=== PATIENT | female | born 1950 | race Caucasian/White ===

== ENCOUNTER 2024-06-27 14:29 | Outpatient (AMB) | payer BC, SELFPAY ==
--- NOTE | 2024-06-27 14:49 | HO.NEPHOV ---
Vital Signs 06/27/24 14:51 Height 5 ft 2.5 in Weight 125 lb 6 oz BMI 22.6 BP 138/70 Blood Pressure Location Lt brachial Position Sitting Pulse 77 Pulse Source Pulse Oximeter Pulse Oximetry (%) 97 Oxygen Delivery Method Room Air Intake Visit Reasons: ENP: CKD stage 3/ GFR 33/ Conf Web Marketing Assistant Required: No Accompanied by: Spouse Allergies No Known Allergies Allergy (Verified 06/27/24 14:51) HPI Comments Details: I had the privilege of seeing Mona for acute kidney injury on a backdrop of CKD stage 3. She is 74 years of age and was accompanied by her . She has hypertension for long time and had been taking lisinopril as well as amlodipine. She gets blood pressure checked at home and has been at goal. She denies any nausea, vomiting, diarrhea, pedal edema, paroxysmal nocturnal dyspnea,, orthopnea, hematuria. She has history of renal calculus. She is very active and exercises every day. She eats a low-sodium diet, counts calories and eats a lot of fruits and vegetables. She had taken proton pump inhibitor in the past. She maintains good hydration. Her serum creatinine has gone to 1.6 recently. She denies any chest pain, palpitation, syncope, history of coronary artery disease, congestive heart failure, CVA, carotid stenosis, peripheral arterial disease. She denies sinusitis, epistaxis, sore throat, hematuria, weight loss, night sweats, history of malignancy. She has arthritis but denies taking nonsteroidal anti-inflammatories on a regular basis. She is concerned that her serum creatinine has gone up. [facility] Medical History (Updated 06/29/24 @ 13:53 by Vidal Sanford MD) Enlarged thyroid Osteoporosis Glaucoma Nephrolithiasis Arthritis Chronic kidney disease, stage 3 Hyperlipidemia Hypertension Surgical History (Updated 06/27/24 @ 14:50 by Lissette Pan MA) H/O hernia repair Social History (Updated 06/27/24 @ 14:49 by Lissette Pan MA) Alcohol intake: current Patient Tobacco Use Status: Former Tobacco user Review of Systems Const All systems reviewed & are unremarkable except as noted in HPI and below Physical Exam Vital Signs: Last Vital Signs Pulse 77 06/27/24 14:51 BP 138/70 06/27/24 14:51 Pulse Ox 97 06/27/24 14:51 Oxygen Delivery Method Room Air 06/27/24 14:51 BMI result Body Mass Index 22.6 Const General: comfortable and no acute distress Orientation/consciousness: patient oriented x3 HEENT Head: Yes normocephalic Mouth: Normal oral and palatal mucosa present Eyes EOM: EOMs intact bilaterally Neck Neck: Yes supple Resp Auscultation: clear to auscultation bilaterally Cardio Jugular venous distension: no JVD Rate: regular rate GI Palpation (GI): Soft to palpation Auscultation: normal bowel sounds General: Yes no CVA tenderness Back/Spine/Pelvis Back: no CVA tenderness Skin General skin exam: no rashes or lesions noted Neuro General: patient oriented x3 and moves all extremities Extrem General: Yes no pedal edema Results Reviewed Nephrology Results: No Data to Display Assessment & Plan Assessment & Plan (1) CKD stage 3a, GFR 45-59 ml/min: Code(s): N18.31 - Chronic kidney disease, stage 3a Category: Medical (2) Hypertension: Code(s): I10 - Essential (primary) hypertension Category: Medical Qualifiers: Hypertension type: primary hypertension Qualified Code(s): I10 - Essential (primary) hypertension Plan Mona has had chronic kidney disease stage 3 at baseline most likely due to hypertension, vascular disease along with he related loss of renal functions. She has been on FALGUNI-inhibitor for a long time. We need to rule out renovascular disease. I ordered renal ultrasound as well as Doppler of her renal arteries along with repeat blood work and urine studies including creatinine clearance. She was encouraged to maintain good hydration and avoid nonsteroidal anti-inflammatories. Her blood pressure needs to maintained at goal. Further management is pending evolving data. All these have been explained in detail. Answered her and her 's questions. Follow-up appointment given Orders: Orders US renal BI 06/27/24 I10 - Essential (primary) hypertension, N18.31 - Chronic kidney disease, stage 3a Creatinine 06/27/24 I10 - Essential (primary) hypertension, N18.31 - Chronic kidney disease, stage 3a Blood Urea Nitrogen 06/27/24 I10 - Essential (primary) hypertension, N18.31 - Chronic kidney disease, stage 3a Electrolytes 06/27/24 I10 - Essential (primary) hypertension, N18.31 - Chronic kidney disease, stage 3a Phosphorus 02/18/25 I10 - Essential (primary) hypertension, N18.31 - Chronic kidney disease, stage 3a Creatinine Clearance Urine 24U 06/27/24 I10 - Essential (primary) hypertension, N18.31 - Chronic kidney disease, stage 3a US renal doppler 06/27/24 I10 - Essential (primary) hypertension, N18.31 - Chronic kidney disease, stage 3a Immunofixation Pnl, Serum 06/27/24 I10 - Essential (primary) hypertension, N18.31 - Chronic kidney disease, stage 3a Immunofixation, Random Urine 06/27/24 I10 - Essential (primary) hypertension, N18.31 - Chronic kidney disease, stage 3a Parathyroid Hormone Intact 06/27/24 I10 - Essential (primary) hypertension, N18.31 - Chronic kidney disease, stage 3a Vitamin D 25-OH Total 06/27/24 I10 - Essential (primary) hypertension, N18.31 - Chronic kidney disease, stage 3a Calcium 06/27/24 I10 - Essential (primary) hypertension, N18.31 - Chronic kidney disease, stage 3a UA and rflx microscopic 06/27/24 I10 - Essential (primary) hypertension, N18.31 - Chronic kidney disease, stage 3a Protein Creatinine Ratio, Ur 06/27/24 I10 - Essential (primary) hypertension, N18.31 - Chronic kidney disease, stage 3a Coding Level of Care Code New Pt Level 4 (13130) Diagnoses CKD stage 3a, GFR 45-59 ml/min N18.31 Primary hypertension I10 Hypertension type: primary hypertension
[2024-06-27 14:51] VITALS: BP 138/70; PULSE 77; O2SAT 97; BMI 22.6
--- OUTSIDE RECORDS SUMMARY | 2024-06-27 15:29 | XMS_ITS | Encounter Summary ---
Author Organization [facility] Address [address] [place] [address] Care Team Providers Care Vice President For Instruction Name Role Phone Jerald Randhawa DO Primary Care Provider [phone] Reason for Visit * Imaging (Routine) - Closed Specialty Diagnoses / Procedures Referred By Beny chaney Referred To Contact Diagnoses Bilateral leg pain Asymptomatic varicose veins of both lower extremities Procedures Vascular US duplex lower extremity venous insufficiency bilateral Susana Rossi PA [address] [place] [address] Phone: tel: fax: [facility] Referral ID Status Reason Start Date Expiration Date Visits Re quested Visits Authorized [id number] Closed 02/25/2024 02/24/2025 1 1 Encounter Details Date Type Department Care Team (Latest Contact Info) Description 06/07/2024 1:15 PM EST Ancillary Procedure [facility] [address] [facility] [address] [place] [phone] Bilateral leg pain; Asymptomatic varicose veins of both lower extremities Social History Tobacco Use Types Packs/Day Years Used Date Smoking Tobacco: Never Assessed Comments Unknown Sex and Gender Information Value Date Recorded Sex Assigned at Not on file Legal Sex Female 6:42 PM EST Gender Identity Not on file Sexual Orientation Not on file documented as of this encounter Plan of Treatment Upcoming Encounters Date Type Department Care Team (Late st Contact Info) Description 07/06/2024 1:00 PM EST Office Visit [facility] Hematology Oncology [address] [place] [phone] Carlos Templeton MD [address] [place] [address] 08/04/2024 3:00 PM EDT Office Visit Vascular Surgery - Hydes [address] [place] [phone] Susana Rossi PA [address] [place] [address] documented as of this encounter Procedures Procedure Name Priority Date/Time Associated Diagnosis Comments VAS US DUPLEX LOWER EXT VENOUS INSUFFICIENCY BILATERAL Routine 06/07/2024 2:03 PM EST Bilateral leg pain Asymptomatic varicose veins of both lower extremities documented in this encounter Results * Vascular US duplex lower extremity venous insufficiency bilateral (06/07/2024 2:03 PM EST) Left GSK jason 0.25 cm CV VAS LAB Left GSDC jason 0.15 cm CV VAS LAB Left GSMT jason 0.24 cm CV VAS LAB Left GSPC jason 0.18 cm CV VAS LAB Left GSPT jason 0.21 cm CV VAS LAB Left SFJ Diameter 0.63 cm CV VAS LAB Left SSMC jason 0.13 cm CV VAS LAB Left SSPC jason 0.13 cm CV VAS LAB Right GSK jason 0.19 cm CV VAS LAB Right GSDC jason 0.23 cm CV VAS LAB Right GSMT jason 0.18 cm CV VAS LAB Right GSPC jason 0.19 cm CV VAS LAB Right GSPT jason 0.21 cm CV VAS LAB Right SFJ Diameter 0.62 cm CV VAS LAB Right SSMC jason 0.15 cm CV VAS LAB Right SSPC jason 0.28 cm CV VAS LAB Left GSK reflux 400 ms CV VAS LAB Left GSPC reflux 4,439 ms CV VAS LAB Anatomical Region Laterality Modality Vascular, Abdomen Ultrasound Narrative 06/15/2024 5:15 PM EST RIGHT: 1. ??There is no evidence of a DVT in the right lower extremity. 2. ??There is no clinically significant reflux noted in the right lower extremity venous system LEFT: 1. ??There is no evidence of a DVT in the left lower extremity. 2. The SFJ, femoral vein, popliteal vein and SSV are competent 3. ??The GSV has clinically significant reflux as described below. Right Lower Venous No evidence of deep vein thrombosis in the common femoral, deep femoral, proximal femoral, mid femoral, distal femoral, popliteal, greater saphenous, small saphenous, posterior tibial and peroneal veins of the right leg. The vessels showed compressibility. Interrogation showed phasic and spontaneous Doppler signals. Right Venous Insufficiency Duplex The exam was performed with the patient in reverse Trendelenburg. Left Lower Venous No evidence of deep vein thrombosis in the common femoral, deep femoral, proximal femoral, mid femoral, distal femoral, popliteal, greater saphenous, small saphenous, posterior tibial and peroneal veins of the left leg. The vessels showed compressibility. Interrogation showed phasic and spontaneous Doppler signals. Left Venous Insufficiency Duplex The exam was performed with the patient in reverse trendelenburg. Left greater saphenous refkuxing branch: left knee branch= 4120ms Commercial Loan Officer Details A ny scale, color and doppler analysis ultrasound was performed. During the study longitudinal and transverse views were obtained. Pulsed wave doppler was performed. us Susana ARCINIEGA CV VASCULAR PROCEDURES Final R esult documented in this encounter Visit Diagnoses Diagnosis Bilateral leg pain Pain in soft tissues of limb Asymptomatic varicose veins of both lower extremities documented in this encounter Care Teams Vice President For Instruction Relationship Specialty Start Date End Date Jerald Randhawa DO [address] [place] [phone] PCP - General 12/08/23 documented as of this encounter
--- OUTSIDE RECORDS SUMMARY | 2024-06-27 15:29 | XMS_ITS | Patient Health Record ---
Author Organization [facility] Address [address] [place] [address] Care Team Providers Care Armor Officer Name Role Phone MT METZGER Primary Care Provider SABRINA BARCLAY Unavailable [phone] MT METZGER Unavailable [phone] Allergies No Known Allergies Reason For Referral No Information Medications Medication SIG (Take, Route, Frequency, Duration) Notes Start Date End Date Status amLODIPine Besylate 10 MG TAKE 1 TABLET BY MOUTH EVERY DAY for 90 Active Centrum Silver 50+Women - as directed Orally Not-Taking Atorvastatin Calcium 20 MG TAKE 1 TABLET BY MOUTH EVERY DAY ORALLY EVERY EVENING 90 DAYS for 90 Active Tylenol PM Extra Strength 500-25 MG 1 tablet at bedtime as needed Orally Once a day for 30 day(s) PRN Not-Taking Omeprazole 40 MG TAKE 1 CAPSULE BY MO RIH EVERY DAY FOR 30 DAYS for 90 Not-Taking Gabapentin 300 MG 1 capsule Orally at bedtime for 30 day(s) 11/13/2021 Not-Taking CoQ-10 30 MG as directed Orally Active Lisinopril 20 MG TAKE 1 TABLET BY ORIN TH EVERY DAY for 90 Active Calcium + D3 600-800 MG-UNIT 1 tablet with a meal Orally Once a day for 30 day(s) Not-Taking Aleve 220 MG 1 tablet with food o r milk as needed Orally every 12 hrs PRN Active amLODIPine Besylate 5 MG 1 tablet Orally Once a day for 90 day(s) Not-Taking Immunizations Vaccine Route Administration Date Status Comme nts Pneumococcal conjugate PCV 13 Unknown 12/16/2017 Administered Pneumococcal polysaccharide PPV23 Unknown 05/24/2018 Administered SHINGRIX Unknown 05/26/2018 Administered first dose 12/07/2017 Tdap Unknown 08/08/2014 Administered Social History Tobacco Use: Social History Observation Description Date Details (start date - stop date) Former Smoker NA - NA Tobacco Use/Smoking Question Answer Notes Are you a former smoker How long has it been since you last smoked? > 10 years Additional Findings: Tobacco Non-User Current no n-smoker Alcohol Screen (Audit-C) Question Answer Notes Did you have a drink contain ing alcohol in the past year? Yes How often did you have a dri nk containing alcohol in the past year? 2 to 4 times a month (2 points) How many drinks did you have on a typical day when you were drinking in the past year? 1 or 2 drinks (0 point) How often did you have 6 or more drinks on one occasion in the past year? Never (0 point) Points 2 Interpretation Negative Section Notes: born in [place], moved to at age 9. Attended [employer] Wanted to study computer but too poor to go to college. 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 Kayla's dad owned a liquor store in [place]. born in [place], [place] at age 9. Attended [employer] Wanted to study computer but too poor to go to college. 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 Kayla's dad owned a liquor store in [place]. born in [place], moved [place] at age 9. Attended [employer] Wanted to study computer but too poor to go to college. 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 Kayla's dad owned a liquor store in [place] [employer]. born in [place], moved [place] at age 9. Attended [employer] Wanted to study computer but too poor to go to college. 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 Kayla's dad owned a liquor store in [place]. born in [place], moved [place] at age 9. Attended [employer] Wanted to study computer but too poor to go to college. 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 Kayla's dad owned a liquor store in [place] [place]. born in [place], moved to [place] at age 9. Attended [employer] Wanted to study computer but too poor to go to college. 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 Kayla's dad owned a liquor store in [place]. born in [place], moved to [place] at age 9. Attended [employer] Wanted to study computer but too poor to go to college. 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 Kayla's dad owned a liquor store in [place]. born in [place], moved to [place] at age 9. Attended [employer] Wanted to study computer but too poor to go to college. 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 Kayla's dad owned a liquor store in [place]. born in [place], moved [place] at age 9. Attended [employer] Wanted to study computer but too poor to go to college. 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 Kayla's dad owned a liquor store in [place]. born in [place], moved to [place] at age 9. Attended [employer] Wanted to study computer but too poor to go to college. 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 Kayla's dad owned a liquor store in [place]. Problems Problem Type SNOMED Code ICD Code Onset Dates Problem Status W/U Status Risk Notes Problem 31099728 Other chronic pain (G89.29) Active confirmed Problem Hypertension (47574241) Hypertension (I10) Active confirmed bp at goal. no change in med. urged cont low impact aerobic exercise Problem 524334408 Thrombocytopenia (D69.6) Active confirmed has been eval by Dr Rojas. may be normal variant. no pathologic. Problem Osteoporosis (11280381) Osteoporosis (M81.0) Active confirmed DEXa 2017 left hip -2.2 Took fosamax for about 3 mo and stopped to due to joint pains. DEXA 2019 left hip -2.3 and left fem neck -3.0 Declined prolia. Does not want discuss medication today. Will cont to take her vitamin D3 supplement. Problem 874613263 Gastroesophageal reflux disease without esophagitis (K21.9) Active confirmed sx resolved with omeprazole 40mg qd. will cont med until rx completed. avoid food triggers Problem Vitamin D deficiency (02742170) Vitamin D deficiency (E55.9) Active confirmed hx of vit D deficiency and osteoporosis. will check lab cont otc supplement D3 Problem Insomnia (916933056) Insomnia (G47.00) Active confirmed Problem 61104800 Varicose veins of both legs with edema (I83.893) Active confirmed edema at end of the day, legs cramp at night. [place] Dr Yee for eval, advised to get compression hose 20-30mmHg but was unable to tolerate. showed web sites for compression garments used by athletes and compression hose with no feet She will try these. Problem 492341892 Primary osteoarthritis of both knees (M17.0) Active confirmed Problem 02240242 Restless legs (G25.81) Active confirmed Problem 1693013 Former smoker (Z87.891) Active confirmed smoked 20-30 years less than a pack per day. FEV1 79% mild obstruction. flu vaccine in Feb at pharmacy. has had covid vaccine Problem Arthritis (4426149) Arthritis (M19.90) Active confirmed multiple joints. after much discussion admits she was eval at [facility] Doesn't want cortisone for her knees. discussed limitation of daily actiity and persistence of increasing pain in left knee as indicators that she should go for reeval. She is resisting knee replacement. [facility] notes requested. Problem Renal insufficiency (126347388) Renal insufficiency (N28.9) Active confirmed Problem Benign neoplasm of colon (79930723) Benign colonic polyp (K63.5) Active confirmed colonoscopy 01/11/2015 DR Grant 5 years recall. no notes for repeat colonoscopy found in transferred records. Problem 59938333 Elevated fasting glucose (R73.01) Active confirmed Problem Thrombocytosis (1371627) Thrombocytosis (D47.3) Active confirmed Problem Hypercholesterolemi a (00055116) Hypercholesterol emia (E78.00) Active confirmed takes statin, follows lower fat diet. reviewed labs with patient. no change in plan Problem 484341052 Thickened endometrium (R93.89) Active confirmed Problem 093214929 Hx of colonic polyps (Z86.010) Active confirmed Problem Chronic kidney disease stage 3 (disorder) (950099414) Chronic kidney disease, stage 3 unspecified (N18.30) Active confirmed Problem 699723810 Stage 3a chronic kidney disease (N18.31) Active confirmed Problem 89019808 Degenerative disc disease, lumbar (M51.36) Active confirmed xray 2016 showed diffuse disc degeneration and lower lumbar facet degeneration. Per transferred records did not follow through on MRI ordered. Has hx of sciatica. 09/02/20 cont to have daily pain althoug able to perform all ADL's. Exercise limited. due to pain.. will image. May benefit from PT. If sx cont will refer to [facility] to consider injections. 10/11/20 reviewed xray with patient advised eval for cortisone injections forher pain. referral made 01/16/21 has decided not to have further injections. states she can manage her pain by doing less activity. 2.24.22 daily pain and manages it by lower impact activity and resting between activities. discussed pain behind knee that goes down to foot radicular, from her back is not ready to go to [facility] for further interventions . Plan Of Treatment Pending Test Test Name Order Date DEXA Hip and Spine 01/16/2021 MAMMOGRAM, SCREENING 01/16/2021 MAMMOGRAM, SCREENING 10/23/2022 Bone Density 10/23/2022 CBC WITH AUTO DIFF 04/27/2022 CBC WITH AUTO DIFF 03/26/2022 COMPREHENSIVE METABOLIC PANEL 03/26/2022 LIPID PROFILE 03/26/2022 US TRANS VAGINAL 11/18/2022 Future Test Test Name Order Date VITAMIN D, 25-HYDROXY 09/02/2020 BASIC METABOLIC PANEL (BMP) 12/11/2020 LIPID PROFILE 12/11/2020 Insurance Providers Payer Name Payer Address Payer Phone Subscriber Number Group Number Insured Name Patient Relationship to Insured Coverage Start Date Coverage End Date Blue [employer] and Blue [facility] [address] [place] [address] [phone] [id number] Mona Moss Self - patient is the insured Medications Administered Medication Instructions Date of Administration Dosage Notes Tdap 08/08/2014 Medical (General) History Medical History History ICD Code duodenal ulcer 01/08/2015 Hpylori on EGD T reated with antibiotics and PPI nephrolethiasis before age 9 and again in 1970's Gastroesophageal reflux disease without esophagitis K21.9 Surgical History Surgery Date(Month/Year) cateract excision Hospitalization History Reason Date(Month/Year) [facility], admitted for CP Neg EKG and troponins. Responded to gastric cocktail. Rx PPI 01/2020 syncope attributed to vasovagal episode.
--- OUTSIDE RECORDS SUMMARY | 2024-06-27 15:30 | XMS_ITS | Clinical Summary ---
Author Organization [address] [place] [address] Address [address] [place] [address] Phone Care Team Providers Care Spray Blender Name Role Phone Jerald Randhawa DO Primary Care Provider [phone] Allergies No known active allergies Medications amLODIPine (NORVASC) 10 mg tablet Take 1 Tablet by mouth daily. Active aspirin ([place]alore) 81 mg capsule Take 81 mg by mouth daily. Active atorvastatin (LIPITOR) 20 mg tablet Take 1 Tablet by mouth daily. Active lisinopriL (PRINIVIL,ZESTRI L) 20 mg tablet Take 1 Tablet by mouth daily. Active Active Problems Problem Noted Date Diagnosed Date Arthritis 03/03/2024 Elevated HDL 03/03/2024 GERD without esophagitis 03/03/2024 HTN (hypertension) 03/03/2024 Stage 3a chronic kidney disease 03/03/2024 Varicose veins of leg with edema 03/03/2024 Encounters Date Type Department Care Team Description 06/07/2024 1:15 PM EST Ancillary Procedure [facility] Cardiology [facility] [address] [phone] Bilateral leg pain; Asymptomatic varicose veins of both lower extremities 04/18/2024 2:45 PM EST Ancillary Procedure [facility] Cardiology [facility] [address] [phone] H/O intermittent claudication; Rest pain of both lower extremities due to atherosclerosis ([facility]/HCC) 04/13/2024 Telephone Vascular Surgery - [address] [phone] Susana Rossi PA Appointment (No DX for Arterial/MARY) from Last 3 Months Social History Tobacco Use Types Packs/Day Years Used Date Smoking Tobacco: Never Assessed Comments Unknown Sex and Gender Information Value Date Recorded Sex Assigned at Not on file Legal Sex Female 6:42 PM EST Gender Identity Not on file Sexual Orientation Not on file Last Filed Vital Signs Vital Sign Reading Time Taken Comments Blood Pressure 151/75 02/22/2024 2:57 PM EDT Sit ting R Arm Pulse 81 02/22/2024 2:57 PM EDT Temperature - - Respiratory Rate - - Oxygen Saturation - - Inhaled Oxygen Concentration - - Weight 57.6 kg (127 lb) 02/22/2024 2:57 PM EDT Height 152.4 cm (5') 02/22/2024 2:57 PM EDT Body Mass Index 24.8 02/22/2024 2:57 PM EDT Plan of Treatment Upcoming Encounters Date Type Department Care Team (Late st Contact Info) Description 07/06/2024 1:00 PM EST Office Visit [facility] Hematology Oncology [address] [place] [phone] Carlos Templeton MD [address] [place] [address] 08/04/2024 3:00 PM EDT Office Visit Vascular Surgery - [place] [address] [place] [phone] Susana Rossi PA [address] [place] [address] Health Maintenance Due Date Last Done Comments COVID-19 Vaccine (#1) 1955 Cholesterol Screening (Lipid Panel) 04/11/2022 Depression Screening 04/11/2022 Falls Risk Assessment 04/11/2022 Hepatitis C Screening 04/11/2022 Medicare Annual Wellness Visit 04/11/2022 Osteoporosis Screening (Bone Density Screening) 04/11/2022 Social Influencers of Health Screening 04/11/2022 RSV Immunization Patients 60 + Years Old (1 - 1-dose 75+ series) 2023 Influenza Vaccine (#1) 2024 0, 06/06/2019, 03/24/2017 DTaP,Tdap,and Td Vaccines (2 - Td or Tdap) 08/08/2024 08/08/2014 Hypertension/CHF/CAD Annual BMP Blood Test 06/05/2025 06/05/2024, 06/01/2024 Pneumococcal Vaccine: 50+ Years Completed 05/24/2018, 12/16/2016 Zoster Vaccines Completed 05/26/2018, 12/07/2017 HIB Vaccines Aged Out No longer eligi ble based on patient's age to complete this topic HPV Vaccines Aged Out No longer eligi ble based on patient's age to complete this topic Hepatitis A Vaccines Aged Out No long er eligible based on patient's age to complete this topic Hepatitis B Vaccines Aged Out No long er eligible based on patient's age to complete this topic IPV Vaccines Aged Out No longer eligi ble based on patient's age to complete this topic MMR Vaccines Aged Out No longer eligi ble based on patient's age to complete this topic Meningococcal ACWY Vaccine Aged Out N o longer eligible based on patient's age to complete this topic Meningococcal B Vacine Aged Out No lo nger eligible based on patient's age to complete this topic RSV Immunization Patients Under 20 months Aged Out No longer eligible b ased on patient's age to complete this topic Varicella Vaccines Aged Out No longer eligible based on patient's age to complete this topic Procedures Procedure Name Priority Date/Time Associated Diagnosis Comments VAS US DUPLEX LOWER EXT VENOUS INSUFFICIENCY BILATERAL Routine 06/07/2024 2:03 PM EST Bilateral leg pain Asymptomatic varicose veins of both lower extremities BASIC METABOLIC PANEL Routine 06/05/2024 1:06 PM EST HTN (hypertension) CKD (chronic kidney disease) CBC WITH AUTO DIFFERENTIAL Routine 06/01/2024 2:30 PM EST HTN (hypertension) Thrombocytopenia (CMS/HCC) CBC AND DIFFERENTIAL Routine 06/01/2024 2:30 PM EST HTN (hypertension) Thrombocytopenia (CMS/HCC) BASIC METABOLIC PANEL Routine 06/01/2024 2:30 PM EST HTN (hypertension) Thrombocytopenia (CMS/HCC) VAS US DUPLEX LOWER EXT ARTERIES BILAT WITH MARY Routine 04/18/2024 3:58 PM EST H/O intermittent claudication Rest pain of both lower extremities due to atherosclerosis (CMS/HCC) from Last 3 Months Results * Vascular US duplex lower extremity [...] 0.23 cm CV VAS LAB Right GSMT ajson 0.18 cm CV VAS LAB Right GSPC [...] saphenous refkuxing branch: left knee branch= 4120ms In Flight Refueling Manager Details A ny scale, color and doppler analysis ultrasound was performed. During the study longitudinal and transverse views were obtained. Pulsed wave doppler was performed. us Susana ARCINIEGA CV VASCULAR PROCEDURES Final R esult * (ABNORMAL) Basic metabolic panel (06/05/2024 1:06 PM EST) Only the most recent of2 resultswithin the time period is included. Sodium 137 133 - 145 mmol/L LAB CHEMISTRY METHOD 06/05/2024 4:36 PM [facility] Potassium 4.3 3.5 - 5.5 mmol/L LAB CHEMISTRY METHOD 06/05/2024 4:36 PM [facility] Chloride 105 96 - 110 mmol/L LAB CHEMISTRY METHOD 06/05/2024 4:36 PM [facility] CO2 27 21 - 32 mmol/L LAB CHEMISTRY METHOD 06/05/2024 4:36 PM [facility] Anion Gap 5 3 - 11 LAB CHEMISTRY METHOD 06/05/2024 4:36 PM [facility] Glucose 110(H) 70 - 100 mg/dL LAB CHEMISTRY METHOD 06/05/2024 4:36 PM [facility] BUN 23 5 - 25 mg/dL LAB CHEMISTRY METHOD 06/05/2024 4:36 PM [facility] Creatinine 1.61(H) 0.50 - 1.10 mg/dL LAB CHEMISTRY METHOD 06/05/2024 4:36 PM [facility] eGFR 33(L) >=60 mL/min/1. 73m2 LAB CHEMISTRY METHOD 06/05/2024 4:36 PM EST [facility] Comment:Calculation based on the??Chronic Kidney Disease Epidemiology Collaboration (CKD-EPI) equation refit??without adjustment for race. BUN/Creatinine Ratio 14.3 LAB CHEMISTRY METHOD 06/05/2024 4:36 PM EST [facility] Calcium 9.5 8.5 - 10.5 mg/dL LAB CHEMISTRY METHOD 06/05/2024 4:36 PM EST [facility] Blood Venous blood specimen / Unknown Venipuncture / Unknown 06/05/2024 1:06 PM EST 06/05/2024 1:06 PM EST [facility] BLOOD ORDERABLES Final Resul t [facility] [address] [place] [address], * (ABNORMAL) CBC auto differential (06/01/2024 2:30 PM EST) WBC 10.7 4.8 - 10.8 K/mcL LAB HEMETOLOGY METHOD 06/01/2024 7:23 PM [facility] RBC 3.90 3.80 - 4.80 M/mcL LAB HEMETOLOGY METHOD 06/01/2024 7:23 PM [facility] Hemoglobin 11.9 11.5 - 16.0 g/dL LAB HEMETOLOGY METHOD 06/01/2024 7:23 PM [facility] Hematocrit 38.3 35.0 - 47.0 % LAB HEMETOLOGY METHOD 06/01/2024 7:23 PM [facility] MCV 98.2(H) 79.0 - 98.0 FL LAB HEMETOLOGY METHOD 06/01/2024 7:23 PM [facility] MCH 30.5 27.0 - 32.0 pcg LAB HEMETOLOGY METHOD 06/01/2024 7:23 PM [facility] MCHC 31.1(L) 32.0 - 37.0 g/dL LAB HEMETOLOGY METHOD 06/01/2024 7:23 PM [facility] RDW 14.0 11.0 - 15.0 % LAB HEMETOLOGY METHOD 06/01/2024 7:23 PM [facility] Platelets 464(H) 130 - 400 K/mcL LAB HEMETOLOGY METHOD 06/01/2024 7:23 PM [facility] MPV 10.1 7.0 - 11.0 FL LAB HEMETOLOGY METHOD 06/01/2024 7:23 PM [facility] NRBC 0.0 <1.0 % LAB HEMETOLOGY METHOD 06/01/2024 7:23 PM [facility] NRBC Absolute 0.00 <0.10 K/mcL LAB HEMETOLOGY METHOD 06/01/2024 7:23 PM [facility] Neutrophils Relative 56.3 % LAB HEMETOLOGY METHOD 06/01/2024 7:23 PM [facility] Lymphocytes Relative 31.5 % LAB HEMETOLOGY METHOD 06/01/2024 7:23 PM [facility] Monocytes Relative 8.5 % LAB HEMETOLOGY METHOD 06/01/2024 7:23 PM [facility] Eosinophils Relative 2.6 % LAB HEMETOLOGY METHOD 06/01/2024 7:23 PM [facility] Basophils Relative 0.9 % LAB HEMETOLOGY METHOD 06/01/2024 7:23 PM [facility] Immature Granulocytes Relative 0.2 % LAB HEMETOLOGY METHOD 06/01/2024 7:23 PM [facility] Neutrophils Absolute 6.01 1.50 - 7.00 K/mcL LAB HEMETOLOGY METHOD 06/01/2024 7:23 PM EST [facility] Lymphocytes Absolute 3.37 1.00 - 5.00 K/mcL LAB HEMETOLOGY METHOD 06/01/2024 7:23 PM EST [facility] Monocytes Absolute 0.91 0.20 - 1.00 K/mcL LAB HEMETOLOGY METHOD 06/01/2024 7:23 PM EST [facility] Eosinophils Absolute 0.28 0.00 - 0.50 K/mcL LAB HEMETOLOGY METHOD 06/01/2024 7:23 PM EST [facility] Basophils Absolute 0.10 0.00 - 0.20 K/mcL LAB HEMETOLOGY METHOD 06/01/2024 7:23 PM EST [facility] Immature Granulocytes Absolute 0.02 0.00 - 0.03 K/mcL LAB HEMETOLOGY METHOD 06/01/2024 7:23 PM EST [facility] Blood Venous blood specimen / Unknown Venipuncture / Unknown 06/01/2024 2:30 PM EST 06/01/2024 2:30 PM EST [facility] BLOOD ORDERABLES Final Resul t [facility] [address] [place] [address], * Vascular US duplex lower extremity arteries bilateral with MARY (04/18/2024 3:58 PM EST) Left Dist External Iliac PSV 137 cm/s CV VAS LAB Left Prox External Iliac PSV 123 cm/s CV VAS LAB Left AT dist sys PSV 66 cm/s CV VAS LAB Left AT mid sys PSV 80 cm/s CV VAS LAB Left AT prox sys PSV 67 cm/s CV VAS LAB Left SENIOR ENGINEERING ASSOCIATE prox sys PSV 200 cm/s CV VAS LAB Left mid peroneal sys PSV 56 cm/s CV VAS LAB Left popliteal dist sys PSV 83 cm/s CV VAS LAB Left popliteal prox sys PSV 64 cm/s CV VAS LAB Left PT dist sys PSV 83 cm/s CV VAS LAB Left PT mid sys PSV 73 cm/s CV VAS LAB Left PT prox sys PSV 74 cm/s CV VAS LAB Left super femoral dist sys PSV 91 cm/s CV VAS LAB Left super femoral mid sys PSV 127 cm/s CV VAS LAB Left super femoral prox sys PSV 214 cm/s CV VAS LAB Right Dist External Iliac PSV 112 cm/s CV VAS LAB Right Prox External Iliac PSV 114 cm/s CV VAS LAB Right AT dist sys PSV 89 cm/s CV VAS LAB Right AT mid sys PSV 84 cm/s CV VAS LAB Right AT prox sys PSV 91 cm/s CV VAS LAB Right SENIOR ENGINEERING ASSOCIATE prox sys PSV 159 cm/s CV VAS LAB Right mid peroneal sys PSV 80 cm/s CV VAS LAB Right popliteal dist sys PSV 106 cm/s CV VAS LAB Right popliteal prox sys PSV 83 cm/s CV VAS LAB Right PT dist sys PSV 73 cm/s CV VAS LAB Right PT mid sys PSV 81 cm/s CV VAS LAB Right PT prox sys PSV 76 cm/s CV VAS LAB Right super femoral dist sys PSV 88 cm/s CV VAS LAB Right super femoral mid sys PSV 192 cm/s CV VAS LAB Right super femoral prox sys PSV 183 cm/s CV VAS LAB Right profunda sys PSV 128 cm/s CV VAS LAB Left profunda sys PSV 121 cm/s CV VAS LAB Right arm BP 134 mmHg CV VAS LAB Left arm BP 137 mmHg CV VAS LAB Right posterior tibial 148 mmHg CV VAS LAB Right Dorsalis Pedis 118 mmHg CV VAS LAB Right MARY 1.08 CV VAS LAB Left posterior tibial 136 mmHg CV VAS LAB Left Dorsalis Pedis 140 mmHg CV VAS LAB Left MARY 1.02 CV VAS LAB Anatomical Region Laterality Modality Vascular, Abdomen Ultrasound Narrative 04/18/2024 5:47 PM EST ?Right: No hemodynamically significant obstructive arterial disease in the right lower extremity. Right SFA has near 50% stenosis. Triple vessel runoff. Right MARY is normal at 1.08. ?Left: 50% stenosis in the right proximal SFA. Other arterial segments have less than 50% stenosis. Triple vessel runoff. Left MARY is normal at 1.02. Right Lower Arterial Duplex The distal external iliac artery has triphasic flow. The common femoral artery has triphasic flow. The profunda femoris artery has triphasic flow. The superficial femoral artery has triphasic flow. The popliteal artery has triphasic flow. The anterior tibial artery has biphasic flow. The posterior tibial artery has biphasic flow. The mid peroneal artery has biphasic flow. Left Lower Arterial Duplex The distal external iliac artery has triphasic flow. The common femoral artery has triphasic flow. The profunda femoris artery has triphasic flow. The superficial femoral artery has triphasic flow. The popliteal artery has biphasic flow. The anterior tibial artery has biphasic flow. The posterior tibial artery has biphasic flow. The mid peroneal artery has biphasic flow. [employer]ing Manager Details A ny scale, color and doppler analysis ultrasound was performed. During the study longitudinal views were obtained. Continuous wave doppler and pulsed wave doppler was performed. Overall the study quality was good. us Cristnia ARCINIEGA CV VASCULAR PROCEDURES Final Result from Last 3 Months Insurance [employer] - [place] MEDICARE ADVANTAGE Care Teams Spray Blender Relationship Specialty Start Date End Date Jerald Randhawa DO [address] [place] [phone] PCP - General 12/08/23
--- OUTSIDE RECORDS SUMMARY | 2024-06-27 15:30 | XMS_ITS ---
Author Organization [facility] Address [address] [place] [address] Care Team Providers Care Head Knitting Machine Fixer Name Role Phone MT METZGER Primary Care Provider [phone] STEVE LO Unavailable [phone] MT METZGER Unavailable [phone] Allergies No Known Allergies Results Component Value Reference Range Notes Electrocardiogram (EKG) Reviewed date:02/02/2023 05:56:31 PM Interpretation: Performing Lab: Notes/Report: REASON FOR VISIT Medicare Wellness Visit:, DEPRESSION SCREENING, LABS DONE JULY 2022, EKG DUE, MAMMO DUE - declined Medications Medication SIG (Take, Route, Frequency, Duration) Notes Start Date End Date Status amLODIPine Besylate 10 MG TAKE 1 TABLET BY MOUTH EVERY DAY for 90 Active Centrum Silver 50+Women - as directed Orally Not-Takin g Atorvastatin Calcium 20 MG TAKE 1 TABLET BY MOUTH EVERY DAY ORALLY EVERY EVENING 90 DAYS for 90 Active Alendronate Sodium 70 MG 1 tablet Orally once a week for 90 days 12/10/2022 12/05/2023 Active Lisinopril 20 MG TAKE 1 TABLET BY ORIN TH EVERY DAY for 90 Active Gabapentin 300 MG 1 capsule Orally at bedtime for 30 day(s) 11/13/2021 Not-Taking CoQ-10 30 MG as directed Orally Active Calcium + D3 600-800 MG-UNIT 1 tablet with a meal Orally Once a day for 30 day(s) Not-Taking Aleve 220 MG 1 tablet with food o r milk as needed Orally every 12 hrs PRN Active amLODIPine Besylate 5 MG 1 tablet Orally Once a day for 90 day(s) Not-Taking Tylenol PM Extra Strength 500-25 MG 1 tablet at bedtime as needed Orally Once a day for 30 day(s) PRN Not-Taking Omeprazole 40 MG TAKE 1 CAPSULE BY MOUTH EVERY DAY FOR 30 DAYS for 90 Not-Taking Social History Tobacco Use: Social History Observation [...] [place], moved to at age 9. Attended [employer] Wanted to study computer but too poor to go to college. 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 Kayla's dad owned a liquor store in [place]. Vital Signs Temperature 98.4 degrees Fahrenheit 02/03/20 23 Blood pressure systolic 142 mm Hg 02/03/20 23 Blood pressure diastolic 60 mm Hg 023 Heart Rate 81 /min 02/02/2023 Height 62 in 02/02/2023 Weight 117 lbs 02/02/2023 BMI 21.40 kg/m2 02/02/2023 Oximetry 99 % 02/02/2023 Encounters Encounter Location Date Provider Diagnosis [address] [place] [address] 02/02/2023 STEVE LO Hypertension I10 and Mild dementia without behavioral disturbance, psychotic disturbance, mood disturbance, or anxiety, unspecified dementia type F03.A0 Assessments Encounter Date Diagnosis (ICD Code) Assessment Notes Treatment Notes Treatment Clinical Notes Section Notes 02/02/2023 Hypertension (ICD-10 - I10) bp at goal. no change in med. urged cont low impact aerobic exercise 02/02/2023 Mild dementia without behavioral disturbance, psychotic disturbance, mood disturbance, or anxiety, unspecified dementia type (ICD-10 - F03.A0) Plan Of Treatment Next Appt Details Follow Up: 6 Months, Reason: Progress Notes * Navdeep MOSSaDOB: 8 (72 yo F)Acc No.[id number]:02/02/2023 Progress Note Patient:?Mona Moss Provider:?Steve Lo MD :1950???Age:72 Y???Sex:Female D ate:02/02/2023 Address:[address] [place], [place] [id number] Pcp:[place] [facility] Subjective: * Chief Complaints: * ???Medicare Wellness Visit:D EPRESSION SCREENINGLABS DONE JULY 2022EKG DUEMAMMO DUE - declined * HPI: ???Depression Screening:?PHQ-9?Little interest or pleasure in doing things?Not at all ?Feeling down, depressed, or hopeless?Not at all ?Trouble falling or staying asleep, or sleeping too much?Not at all ?Feeling tired or having little energy?Not at all ?Poor appetite or overeating?Not at all ?Feeling bad about yourself or that you are a failure, or have let yourself or your family down?Not at all ?Trouble concentrating on things, such as reading the newspaper or watching television?Not at all ?Moving or speaking so slowly that other people could have noticed; or the opposite, being so fidgety or restless that you have been moving around a lot more than usual?Not at all ?Thoughts that you would be better off or of hurting yourself in some way?Not at all ?Total Score?0 ?Interpretation?Minimal Depression ???Constitutional:? 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 Usedto golf Does fishing from his boat. Had DM, HTN, Hyperlipidemia, Hearing loss, tinnitus, back problems, knee pain . ? Comes to day with constant burping for past one year. Had GI appintment but had cancelled it. Wants a referral. No other complaints. Needs labs Saw Jenniffer at last visit. Goes to [place] for his meds and sees a medication coordinator there Sees Dr Carranza for his diabetes. 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 Has 2 sisters and a brother who in [place]. Bunny in [place] and [place] in [place] Close to them Happy childhood Grew up in [employer] in [place]. Started workin in [employer] and retired in 2005 from [employer] and then worked in a clothing sore also. ?Lives with in [place] Has a cat Clarita. Close to and do everything together Goes to [place] Loves to clean her house. ?Admits to being forgetful for past [address] occasionally. Difficulty in remembering names and dates ?Had US pelvis which showed thickened Uterus Saw a supervisor electronic testing in [place] and told it wa snormal. ? Had DM, HTN, Hyperlipidemia, Hearing loss, tinnitus, back problems, knee pain . ?JENNIFFER: ?Seen at [place] ED on 11/04/22 Had abd pain, dry heaves. still has some upper mid abd pressure like pain Occ has severe heart burn with pain in epigastrium, back and pressure in lower esophagus. Heartburn about 2x a week. Took omeprazle briefly and did not feel it helped. denies blood in stool. Has not seen GI for her sx in past. ?Imaging of abd negative but did show endometrial thickening. Denies bleeding or d/c from vaginal. Denies pelvid pain. Not sexually active for years. Menopause in my 50's . Has not seen supervisor electronic testing for over a decade. * ROS:?General/Constitutional:?Denies?Change in appetite.?Denies?Chills.?Denies?Fatigue.?Denies?Fever.?Denies?Headache.?Denies?L ightheadedness.?Respiratory:?Denies?Chest pain.?Denies?Cough.?Denies?Hemoptysis.?Denies?Pain with inspiration.?Denies?Shortness of breath.?Denies?Shortness of breath at rest.?Denies?Shortness of breath with exertion.?Denies?Sputum production.?Denies?Wheezing.?Cardiovascular:?Denies?Chest pain.?Denies?Chest pain at rest.?Denies?Chest pain with exertion.?Denies?Claudication.?Denies?Difficulty laying flat.?Denies?Dizziness.?Denies?Dyspnea on exertion.?Denies?Fluid accumulation in the legs.?Denies?Irregular heartbeat.?Denies?Orthopnea.?Denies?Palpitations.?Denies?Shortness of breath.?Swelling in hands/feet?denies.?Denies?Weakness.?Gastrointestinal:?Patient complaining of?see hpi.? * Medical History:? * Surgical History:?cateract e xcision * Hospitalization/Major Diagno stic Procedure:?syncope attributed to vasovagal episode. 04/08/[facility] , admitted for CP Neg EKG and troponins. Responded to gastric cocktail. Rx PPI 01/2020 * Social History:?Tobacco Use:?Tobacco Use/Smoking?Are you a?former smoker ?How long has it been since you last smoked??> 10 years ?Additional Findings: Tobacco Non-User?Current non-smoker ???Drugs/Alcohol:?Alcohol Screen (Audit-C)?Did you have a drink containing alcohol in the past year??Yes ?How often did you have a drink containing alcohol in the past year??2 to 4 times a month (2 points) ?How many drinks did you have on a typical day when you were drinking in the past year??1 or 2 drinks (0 point) ?How often did you have 6 or more drinks on one occasion in the past year??Never (0 point) ?Points?2 ?Interpretation?Negative ???Miscellaneous:?Exercise: limited by all her joint pains.. ?Housing: owns a home. ?Living with: spouse. ?Marital status: . 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 ???born in [place], moved to at age 9. Attended [employer] Wanted to study computer but too poor to go to college. 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 Kayla's dad owned a liquor store in [place]. * Medications:?TakingAleve 220 MG Tablet 1 tablet with food or milk as needed Orally every 12 hrs, Notes: PRNCoQ-10 30 MG Capsule as directed Orally Lisinopril 20 MG Tablet TAKE 1 TABLET BY MOUTH EVERY DAY Atorvastatin Calcium 20 MG Tablet TAKE 1 TABLET BY MOUTH EVERY DAY ORALLY EVERY EVENING 90 DAYS Alendronate Sodium 70 MG Tablet 1 tablet Orally once a week, stop date 12/05/2023mLODIPine Besylate 10 MG Tablet TAKE 1 TABLET BY MOUTH EVERY DAY Taking Aleve 220 MG Tablet 1 tablet with food or milk as needed Orally every 12 hrs, Notes: PRNTaking CoQ-10 30 MG Capsule as directed Orally Taking Lisinopril 20 MG Tablet TAKE 1 TABLET BY MOUTH EVERY DAY Taking Atorvastatin Calcium 20 MG Tablet TAKE 1 TABLET BY MOUTH EVERY DAY ORALLY EVERY EVENING 90 DAYS Taking Alendronate Sodium 70 MG Tablet 1 tablet Orally once a week, stop date 12/05/2023Taking amLODIPine Besylate 10 MG Tablet TAKE 1 TABLET BY MOUTH EVERY DAY Not-TakingCentrum Silver 50+Women - Tablet as directed Orally Tylenol PM Extra Strength 500-25 MG Tablet 1 tablet at bedtime as needed Orally Once a day, Notes: PRNOmeprazole 40 MG Capsule Delayed Release TAKE 1 CAPSULE BY MOUTH EVERY DAY FOR 30 DAYS Gabapentin 300 MG Capsule 1 capsule Orally at bedtimeCalcium + D3 600-800 MG-UNIT Tablet 1 tablet with a meal Orally Once a dayamLODIPine Besylate 5 MG Tablet 1 tablet Orally Once a dayMedication List reviewed and reconciled with the patientNot-Taking Centrum Silver 50+Women - Tablet as directed Orally Not-Taking Tylenol PM Extra Strength 500-25 MG Tablet 1 tablet at bedtime as needed Orally Once a day, Notes: PRNNot-Taking Omeprazole 40 MG Capsule Delayed Release TAKE 1 CAPSULE BY MOUTH EVERY DAY FOR 30 DAYS Not-Taking Gabapentin 300 MG Capsule 1 capsule Orally at bedtimeNot-Taking Calcium + D3 600-800 MG-UNIT Tablet 1 tablet with a meal Orally Once a dayNot-Taking amLODIPine Besylate 5 MG Tablet 1 tablet Orally Once a dayMedication List reviewed and reconciled with the patient * Allergies:?N.K.D.A.no[Allerg ies Verified] Objective: * Vitals:?Temp:98.4 F, HR:81 / min, BP:142/60 mm Hg, Wt:117 lbs, BMI:21.40 Index, Ht: 62 in, Oxygen sat %:99 %, Ht-cm: 157.48 cm, Wt-k.07 kg. * Examination: ???General Examination: ?GENERAL APPEARANCE:?in no acute distress, well developed, well nourished.?HEAD:?normocephalic, atraumatic.?SKIN:?warm and dry.?HEART:?no murmurs, regular rate and rhythm, S1, S2 normal.?LUNGS:?no cough or SOB heard.?ABDOMEN:?bowel sounds present , no hepatosplenomegaly , soft, nontender, nondistended.?PSYCH:?alert, oriented , cooperative with exam , judgement and insight good , speech clear , mood/affect full range.? Assessment: * Assessment: 1.?Hypertension - I10, bp at goal. no change in med. urged cont low impact aerobic exercise?2.?Mild dementia without behavioral disturbance, psychotic disturbance, mood disturbance, or anxiety, unspecified dementia type - F03.A0 (Primary)? Plan: * Treatment: * Procedure Codes:?97153 -ELEC TROCARDIOGRAM, COMPLETE * Follow Up:?6 Months * Billing Information: * Visit Code:? 64293 Office Visit, Est Pt., Level 4. * Procedure Codes:? 80229 -ELECTROCARDIOGRAM, COMPLETE. Care Plan Details* * Sign off status: Completed true * Provider:?Steve Lo MD Date:?2022 Generated for Zoya chan/Cassie/eTransmitting on:?06/27/2024 03:29 PM EST History and Physical Notes * HPI (History of Present Illness) Category Sub-Category Detail Notes Category Not es Depression Screening PHQ-9 Little inte rest or pleasure in doing things: Not at all Feeling down, depressed, or hopeless: No t at all Trouble falling or staying asleep, or sl eeping too much: Not at all Feeling tired or having little energy: N ot at all Poor appetite or overeating: Not at all Feeling bad about yourself o r that you are a failure, or have let yourself or your family down: Not at all Trouble concentrating on thi ngs, such as reading the newspaper or watching television: Not at all Moving or speaking so slowly that other people could have noticed; or the opposite, being so fidgety or restless that you have been moving around a lot more than usual: Not at all Thoughts that you would be b fabiano off or of hurting yourself in some way: Not at all Total Score: 0 Interpretation: Minimal Depression Examination Category Sub-Category Detail Notes Category Not es General Examination GENERAL APPEARANCE: in no ac raina distress, well developed, well nourished HEAD: normocephalic, atrau matic HEART: no murmurs, regular rate and rhythm, S1, S2 normal CHEST: LUNGS: no cough or SOB hear d ABDOMEN: bowel sounds present , no hepatosplenomegaly , soft, nontender, nondistended SKIN: warm and dry BREASTS: PSYCH: alert, oriented , co operative with exam , judgement and insight good , speech clear , mood/affect full range
--- OUTSIDE RECORDS SUMMARY | 2024-06-27 15:30 | XMS_ITS | Continuity of Care Document ---
Author Organization [facility] Address [address] [place] [address] [address] [place] [address] Phone Care Team Providers Care Client Relation Specialist Name Role Phone Jermaine Goins MD, FACS, RVT Unavailable Unavailable Advance Directives Directive Yes / No Effective Date File Name No Information Encounters Encounter Description Practice Location Reason(s) For Visit Diagnoses Date Provider Providers Copied on Encounter [facility], [address] [place] [address] [address], [place], [id number], tel:[phone] [address] [facility] No Information Joselito Morse. [address], [address], [place]. tel:[phone] Family History Family Member Type Diagnosis Age At Onset No Information Payers Payer name Insurance type Covered democrat ID Authoriza tion(s) No Information Social History Type Description Quantity Date Captured Comments Sex Female Smoking Status No Information Chief Complaint And Reason For Visit No Information Reason For Referral Reason For Referral No Information History Of Present Illness Encounter Date Complaint History Of Prese nt Illness No Information Functional Status Date Functional Assessmen t No Information Instructions Date Instruction Additional Infor mation No Information Assessments Type Assessment Date No Information Patient Care Teams Name Effective Dates (start - stop) Status Members No Information
== END 2024-06-27 15:24 | disposition home or self-care (01) ==
PROVIDERS: PCP Internal Medicine; Referring Provider Internal Medicine; Visit Provider Internal Medicine Nephrology
DX: N18.31 Chronic kidney disease, stage 3a (principal); I10 Essential (primary) hypertension
CPT/HCPCS: 99204

== ENCOUNTER → 2024-06-27 14:29 | Outpatient (BNVA) | payer BC, SELFPAY | PROVIDERS: PCP Internal Medicine; Referring Provider Internal Medicine; Visit Provider Internal Medicine Nephrology ==

== ENCOUNTER 2024-07-12 09:39 | Outpatient (REF) | payer BC, SELFPAY ==
--- NOTE | ~2024-07-12 | US_ITS ---
CLINICAL HISTORY: N18.31 - Chronic kidney disease, stage 3a Renal ultrasound with Doppler Comparison: None Findings: The kidneys are increased in echogenicity bilaterally. No hydronephrosis. The right kidney is mildly atrophic, measuring 7.6cm in length. Simple cysts measure 0.4 x 0.4 x 0.6 cm 1.1 x 1.0 x 1.1 cm. The left kidney is normal in size, measuring 10.1cm in length. Simple cysts measure 1.7 x 1.7 x 1.8 cm 0.6 x 0.5 x 0.6 cm. Normal waveform of the aorta with a peak systolic velocity of the 104 centimeters/second Right kidney: Main renal artery peak systolic velocities (PSV), normal is <180cm/s: Ostium: 277 cm/s, abnormal Proximal: 67.8 cm/s Mid: 52 cm/s Distal: 115 cm/s Abnormal intraparenchymal acceleration time: No. Normal is <0.07s Max Renal PSV/Aorta PSV, normal is <3.5: No No pulsus parvus et tardus waveforms or turbulent flow. Max segmental resistive index: Abnormal, 0.8 The right renal vein is patent. Left kidney: Main renal artery peak systolic velocities (PSV), normal is <180cm/s: Ostium: 97.6 cm/s Proximal: 154 cm/s Mid: 185 cm/s, abnormal Distal: 218 cm/s, abnormal Max Renal PSV/Aorta PSV, normal is <3.5: No No pulsus parvus et tardus waveforms or turbulent flow. Max segmental resistive index: Abnormal, 0.85 The left renal vein is patent. Impression: Increased echogenicity of the kidneys may indicate medical renal disease. There is evidence of renal artery stenosis with elevated peak systolic velocities bilaterally and abnormal resistive indices. This document has been electronically signed by: Debra Rosenberg MD on 07/12/2024 22:23:57
--- OUTSIDE RECORDS SUMMARY | 2024-07-12 10:59 | XMS_ITS | Patient Health Record ---
Author Organization [facility] Address [address] [place] [address] Care Team Providers Care Engraver Copperplate Name Role Phone MT METZGER Primary Care Provider [phone] SABRINA BARCLAY Unavailable [phone] MT METZGER Unavailable [phone] Allergies No Known Allergies Reason For Referral [...] 40 MG TAKE 1 CAPSULE BY MO UTH EVERY DAY FOR 30 DAYS for 90 [...] [place], moved to at age 9. Attended [employer] Wanted to study computer but too poor to go to college. 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 Kayla's dad owned a liquor store in [employer] born in [place], moved to [place] at age 9. Attended [employer] Wanted to study computer but too poor to go to college. 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 Kayla's dad owned a liquor store in [employer] born in [place], moved to [place] at age 11. Attended [employer] Wanted to study computer but too poor to go to college. 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 Kayla's dad owned a liquor store in [employer] born in [place], moved to [place] at age 11. Attended [employer] Wanted to study computer but too poor to go to college. 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 Kayla's dad owned a liquor store in [employer] born in [place], moved to [place] at age 11. Attended [employer] Wanted to study computer but too poor to go to college. 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 Kayla's dad owned a liquor store in [employer] born in [place], moved to [place] at age 11. Attended [employer] Wanted to study computer but too poor to go to college. 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 Kayla's dad owned a liquor store in [employer] born in [place], moved to [place] at age 11. Attended [employer] Wanted to study computer but too poor to go to college. 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 Kayla's dad owned a liquor store in [employer] born in [place], moved to [place] at age 9. Attended [employer] Wanted to study computer but too poor to go to college. 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 Kayla's dad owned a liquor store in [employer] born in [place], moved to [place] at age 9. Attended [employer] Wanted to study computer but too poor to go to college. 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 Kayla's dad owned a liquor store in [place]. born in [place], moved to [place] at age 9. Attended [employer] Wanted to study computer but too poor to go to college. 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 Kayla's dad owned a liquor store in [place]. Problems Problem Type SNOMED Code ICD Code Onset Dates Problem Status W/U Status Risk Notes Problem 39836868 Other chronic pain (G89.29) Active confirmed Problem Hypertension (31310939) Hypertension (I10) Active confirmed bp at goal. no change in med. urged cont low impact aerobic exercise Problem 632124783 Thrombocytopenia (D69.6) Active confirmed has been eval by Dr Rojas. may be normal variant. no pathologic. Problem Osteoporosis (47180162) Osteoporosis (M81.0) Active confirmed DEXa 2017 left hip -2.2 Took fosamax for about 3 mo and stopped to due to joint pains. DEXA 2019 left hip -2.3 and left fem neck -3.0 Declined prolia. Does not want discuss medication today. Will cont to take her vitamin D3 supplement. Problem 528842178 Gastroesophageal reflux disease without esophagitis (K21.9) Active confirmed sx resolved with omeprazole 40mg qd. will cont med until rx completed. avoid food triggers Problem Vitamin D deficiency (33945208) Vitamin D deficiency (E55.9) Active confirmed hx of vit D deficiency and osteoporosis. 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 [facility] Dr Yee for eval, advised to get compression hose 20-30mmHg but was unable to tolerate. showed web sites for compression garments used by athletes and compression hose with no feet She will try these. Problem 505123365 Primary osteoarthritis of both knees (M17.0) Active confirmed Problem 47585079 Restless legs (G25.81) Active confirmed Problem 8003799 Former smoker (Z87.891) Active confirmed smoked 20-30 years less than a pack per day. FEV1 79% mild obstruction. flu vaccine in Feb at pharmacy. has had covid vaccine Problem Arthritis (8105107) Arthritis (M19.90) Active confirmed multiple joints. after much discussion admits she was eval at [facility] Doesn't want cortisone for her knees. discussed limitation of daily actiity and persistence of increasing pain in left knee as indicators that she should go for reeval. She is resisting knee replacement. [facility] notes requested. Problem Renal insufficiency (150402215) Renal insufficiency (N28.9) Active confirmed Problem Benign neoplasm of colon (00195419) Benign colonic polyp (K63.5) Active confirmed colonoscopy 01/11/2015 DR Grant 5 years recall. no notes for repeat colonoscopy found in transferred records. Problem 67569275 Elevated fasting glucose (R73.01) Active confirmed Problem Thrombocytosis (9027524) Thrombocytosis (D47.3) Active confirmed Problem Hypercholesterolemi a (03183653) Hypercholesterol emia (E78.00) Active confirmed takes statin, follows lower fat diet. reviewed labs with patient. no change in plan Problem 111797630 Thickened endometrium (R93.89) Active confirmed Problem 137739396 Hx of colonic polyps (Z86.010) Active confirmed Problem Chronic kidney disease stage 3 (disorder) (870223993) Chronic kidney disease, stage 3 unspecified (N18.30) Active confirmed Problem 234975087 Stage 3a chronic kidney disease (N18.31) Active confirmed Problem 76369143 Degenerative disc disease, lumbar (M51.36) Active confirmed [...] back is not ready to go to [facility] for further interventions . Plan Of Treatment [...] Coverage End Date [employer] and [employer] [facility] [address] [place] [address] [id number] Mona Moss Self - patient is the insured Medications Administered Medication Instructions Date of Administration Dosage Notes Tdap 08/08/2014 Medical (General) History Medical History History ICD Code duodenal ulcer 01/08/2015 Hpylori on EGD T reated with antibiotics and PPI nephrolethiasis before age 9 and again in 1970's Gastroesophageal reflux disease without esophagitis K21.9 Surgical History Surgery Date(Month/Year) cateract excision Hospitalization History Reason Date(Month/Year) [facility], admitted for CP Neg EKG and troponins. Responded to gastric cocktail. Rx PPI 01/2020 syncope attributed to vasovagal episode.
--- OUTSIDE RECORDS SUMMARY | 2024-07-12 10:59 | XMS_ITS ---
Author Organization [facility] Address [address] [place] [address] Care Team Providers Care Pin Cleaner Name Role Phone MT METZGER Primary Care Provider STEVE LO Unavailable [phone] MT METZGER Unavailable [phone] Allergies No Known Allergies Results Component Value [...] Roland, moved to at age 9. Attended [employer] Wanted to study computer but too poor to go to college. 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 Kayla's dad owned a liquor store in [place]. Vital Signs Temperature 98.4 degrees Fahrenheit 02/03/20 23 Blood pressure systolic 142 mm Hg 02/03/20 23 Blood pressure diastolic 60 mm Hg 023 Heart Rate 81 /min 02/02/2023 Height 62 in 02/02/2023 Weight 117 lbs 02/02/2023 BMI 21.40 kg/m2 02/02/2023 Oximetry 99 % 02/02/2023 Encounters Encounter Location Date Provider Diagnosis [address] [place] [address] 02/02/2023 STEVE LO Hypertension I10 and Mild [...] * Navdeep MOSSaDOB: 8 (72 yo F)Acc No.[id number]:02/02/2023 Progress Note Patient:?Mona Moss Provider:?Stvee Lo MD :1950???Age:72 Y???Sex:Female D ate:02/02/2023 Address:[address] [place], [place] [id number] Pcp:MT Segura Subjective: * Chief Complaints: * [...] male, 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 Usedto golf Does fishing from his boat. Had DM, HTN, Hyperlipidemia, Hearing loss, tinnitus, back problems, knee pain . ? Comes to day with constant burping for past one year. Had GI appintment but had cancelled it. Wants a referral. No other complaints. Needs labs Saw Jenniffer at last visit. Goes to [place] for his meds and sees a delivery engineer there Sees Dr Carranza for his diabetes. Sees Dr Martínez once a year for his eyes.) ?Born in [facility] and came to [facility] at age 8 yr with parents Father Ambrocio Bright at age 48 r(had heart surgeries) Central Office Associate in [employer], Mother Amara at age 89 yr . 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 Has 2 sisters and a brother who in [place]. Bunny in [place] and [place] in [place] Close to them Happy childhood Grew up in [employer] in [place]. 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 ?Lives with in [place] Has a cat Clarita. Close to and do everything together Goes to [employer] Loves to clean her house. ?Admits to being forgetful for past [address] D[address] occasionally. Difficulty in remembering names and dates ?Had US pelvis which showed thickened Uterus Saw a acupuncture physician in [place] and told it wa snormal. ? Had DM, HTN, Hyperlipidemia, Hearing loss, tinnitus, back problems, knee pain . ?JENNIFFER: ?Seen at [facility] on 11/04/22 Had abd pain, dry [...] in my 50's . Has not seen acupuncture physician for over a decade. * ROS:?General/Constitutional:?Denies?Change in appetite.?Denies?Chills.?Denies?Fatigue.?Denies?Fever.?Denies?Headache.?Denies?L ightheadedness.?Respiratory:?Denies?Chest pain.?Denies?Cough.?Denies?Hemoptysis.?Denies?Pain with inspiration.?Denies?Shortness of breath.?Denies?Shortness of breath at rest.?Denies?Shortness of breath with exertion.?Denies?Sputum production.?Denies?Wheezing.?Cardiovascular:?Denies?Chest pain.?Denies?Chest pain at rest.?Denies?Chest pain with exertion.?Denies?Claudication.?Denies?Difficulty laying flat.?Denies?Dizziness.?Denies?Dyspnea on exertion.?Denies?Fluid accumulation in the legs.?Denies?Irregular heartbeat.?Denies?Orthopnea.?Denies?Palpitations.?Denies?Shortness of breath.?Swelling in hands/feet?denies.?Denies?Weakness.?Gastrointestinal:?Patient complaining of?see hpi.? * Medical History:? * Surgical History:?cateract e xcision * Hospitalization/Major Diagno stic Procedure:?syncope attributed to vasovagal episode. 04/08/[facility] , admitted for CP Neg EKG [...] Roland, moved to at age 9. Attended [employer] Wanted to study computer but too poor to go to college. 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 Kayla's dad owned a liquor store in [place]. * Medications:?TakingAleve 220 MG Tablet 1 tablet [...] F03.A0 (Primary)? Plan: * Treatment: * Procedure Codes:?18126 -ELEC TROCARDIOGRAM, COMPLETE * Follow Up:?6 Months * Billing Information: * Visit Code:? 32965 Office Visit, Est Pt., Level 4. * Procedure Codes:? 15180 -ELECTROCARDIOGRAM, COMPLETE. Care Plan Details* * Sign off status: Completed true * Provider:?Steve Lo MD Date:?2022 Generated for Zoya chan/Cassie/eTransmitting on:?07/12/2024 10:59 AM EST History and Physical Notes * HPI [...]
--- OUTSIDE RECORDS SUMMARY | 2024-07-12 10:59 | XMS_ITS | Clinical Summary ---
Author Organization [address] [facility] Address [address] [place] [address] Phone Care Team Providers Care Notching Press Operator Name Role Phone Jerald Randhawa DO Primary Care Provider [phone] Allergies No known active allergies Medications amLODIPine [...] Encounters Date Type Department Care Team Description 07/06/2024 1:00 PM EST Office Visit [facility] Hematology Oncology [address] [place] [phone] Carlos Templeton MD Thrombocytosis, unspecified 06/07/2024 1:15 PM EST Ancillary Procedure [facility] Cardiology [facility] [address] [phone] Bilateral leg pain; Asymptomatic varicose veins of both lower extremities 04/18/2024 2:45 PM EST Ancillary Procedure [facility] Cardiology [facility] [address] [phone] H/O intermittent claudication; Rest pain of both lower extremities due to atherosclerosis ([facility]) 04/13/2024 Telephone Vascular Surgery [facility] [address] [facility] [address] [place] [address] Susana Rossi PA Appointment (No DX for Arterial/MARY) from Last 3 Months Surgical History Surgery Date Site/Laterality Comments HERNIA REPAIR Medical History Medical History Date Comments Hyperlipidemia Hypertension Thrombocytosis CKD (chronic kidney disease) stage 3, GFR 30-59 ml/min ([facility]) Osteoporosis GERD (gastroesophageal reflux disease) Social History Tobacco Use Types Packs/Day Years Used Date Smoking Tobacco: Former Cigarettes Smokeless Tobacco: Never Tobacco Cessation:Counseling Given: Not Answered Alcohol Use Standard Drinks/Week Comments Not Currently 0 (1 standard drink = 0.6 oz pur e alcohol) Comments Unknown Sex and Gender Information Value Date Recorded Sex Assigned at Not on file Legal Sex Female 6:42 PM EST Gender Identity Not on file Sexual Orientation Not on file Obstetrics History Last Filed Vital Signs Vital Sign Reading Time Taken Comments Blood Pressure 145/60 07/06/2024 1:06 PM EST Pulse 80 07/06/2024 1:06 PM EST Temperature 36.9 ??C (98.4 ??F) 07/06/2024 1:06 PM ES T Respiratory Rate - - Oxygen Saturation 99% 07/06/2024 1:06 PM EST Inhaled Oxygen Concentration - - Weight 56.7 kg (125 lb) 07/06/2024 1:06 PM EST Height 157.5 cm (5' 2 ) 07/06/2024 1:06 PM EST Body Mass Index 22.86 07/06/2024 1:06 PM EST Plan of Treatment Upcoming Encounters Date Type Department Care Team (Late st Contact Info) Description 08/01/2024 1:15 PM EDT Office Visit [facility] Hematology Oncology [address] [place] [phone] Carlos Templeton MD [address] [place] [address] 08/04/2024 3:00 PM EDT Office Visit Vascular Surgery - [place] [address] [facility] [address] [place] [phone] Susana Rossi PA [address] [facility] [address] [place] [address] Health Maintenance Due Date Last Done Comments COVID-19 Vaccine (#1) 1955 Cholesterol Screening (Lipid Panel) 04/11/2022 Depression Screening 04/11/2022 Falls Risk Assessment 04/11/2022 Hepatitis C Screening 04/11/2022 Medicare Annual Wellness Visit 04/11/2022 Osteoporosis Screening (Bone Density Screening) 04/11/2022 Social Influencers of Health Screening 04/11/2022 RSV Immunization Patients 60 + Years Old (1 - 1-dose 75+ series) 2023 Influenza Vaccine (#1) 2024 , 06/06/2019, 03/24/2017 DTaP,Tdap,and Td Vaccines (2 - Td or Tdap) 08/08/2024 08/08/2014 Hypertension/CHF/CAD Annual BMP Blood Test 07/06/2025 07/06/2024, 06/05/2024, 06/01/2024 Pneumococcal Vaccine: 50+ Years Completed [...] Procedure Name Priority Date/Time Associated Diagnosis Comments CBC WITH AUTO DIFFERENTIAL Routine 07/06/2024 1:34 PM EST Thrombocytosis, unspecified BASIC METABOLIC PANEL Routine 07/06/2024 1:34 PM EST Thrombocytosis, unspecified SEDIMENTATION RATE Routine 07/06/2024 1: 34 PM EST Thrombocytosis, unspecified LACTATE DEHYDROGENASE Routine 07/06/2024 1:34 PM EST Thrombocytosis, unspecified CBC AND DIFFERENTIAL Routine 07/06/2024 1:34 PM EST Thrombocytosis, unspecified VAS US DUPLEX LOWER EXT VENOUS INSUFFICIENCY [...] (CMS/HCC) from Last 3 Months Results * (ABNORMAL) CBC auto differential (07/06/2024 1:34 PM EST) Only the most recent of2 resultswithin the time period is included. WBC 9.8 4.8 - 10.8 K/mcL LAB HEMETOLOGY METHOD 07/06/2024 5:12 PM EST [facility] RBC 3.80 3.80 - 4.80 M/mcL LAB HEMETOLOGY METHOD 07/06/2024 5:12 PM [facility] Hemoglobin 11.5 11.5 - 16.0 g/dL LAB HEMETOLOGY METHOD 07/06/2024 5:12 PM [facility] Hematocrit 37.2 35.0 - 47.0 % LAB HEMETOLOGY METHOD 07/06/2024 5:12 PM [facility] MCV 96.9 79.0 - 98.0 FL LAB HEMETOLOGY METHOD 07/06/2024 5:12 PM [facility] MCH 29.9 27.0 - 32.0 pcg LAB HEMETOLOGY METHOD 07/06/2024 5:12 PM [facility] MCHC 30.9(L) 32.0 - 37.0 g/dL LAB HEMETOLOGY METHOD 07/06/2024 5:12 PM [facility] RDW 14.5 11.0 - 15.0 % LAB HEMETOLOGY METHOD 07/06/2024 5:12 PM [facility] Platelets 477(H) 130 - 400 K/mcL LAB HEMETOLOGY METHOD 07/06/2024 5:12 PM [facility] MPV 10.0 7.0 - 11.0 FL LAB HEMETOLOGY METHOD 07/06/2024 5:12 PM [facility] NRBC 0.0 <1.0 % LAB HEMETOLOGY METHOD 07/06/2024 5:12 PM [facility] NRBC Absolute 0.00 <0.10 K/mcL LAB HEMETOLOGY METHOD 07/06/2024 5:12 PM [facility] Neutrophils Relative 58.5 % LAB HEMETOLOGY METHOD 07/06/2024 5:12 PM [facility] Lymphocytes Relative 29.6 % LAB HEMETOLOGY METHOD 07/06/2024 5:12 PM [facility] Monocytes Relative 8.3 % LAB HEMETOLOGY METHOD 07/06/2024 5:12 PM [facility] Eosinophils Relative 2.2 % LAB HEMETOLOGY METHOD 07/06/2024 5:12 PM [facility] Basophils Relative 1.1 % LAB HEMETOLOGY METHOD 07/06/2024 5:12 PM [facility] Immature Granulocytes Relative 0.3 % LAB HEMETOLOGY METHOD 07/06/2024 5:12 PM [facility] Neutrophils Absolute 5.73 1.50 - 7.00 K/mcL LAB HEMETOLOGY METHOD 07/06/2024 5:12 PM [facility] Lymphocytes Absolute 2.90 1.00 - 5.00 K/mcL LAB HEMETOLOGY METHOD 07/06/2024 5:12 PM [facility] Monocytes Absolute 0.81 0.20 - 1.00 K/mcL LAB HEMETOLOGY METHOD 07/06/2024 5:12 PM [facility] Eosinophils Absolute 0.22 0.00 - 0.50 K/mcL LAB HEMETOLOGY METHOD 07/06/2024 5:12 PM [facility] Basophils Absolute 0.11 0.00 - 0.20 K/mcL LAB HEMETOLOGY METHOD 07/06/2024 5:12 PM [facility] Immature Granulocytes Absolute 0.03 0.00 - 0.03 K/mcL LAB HEMETOLOGY METHOD 07/06/2024 5:12 PM [facility] Blood Venous blood specimen / Unknown Venipuncture / Unknown 07/06/2024 1:34 PM EST 07/06/2024 4:51 PM EST us Carlos Templeton MD LAB BLOOD ORDERABLES Final R esult [facility] [address] [place] [address], [place] [phone] * Sedimentation rate (07/06/2024 1:34 PM EST) [facility] Sed Rate 9 0 - 30 mm/hr LAB HEMETOLOGY METHOD 07/06/2024 5:23 PM EST [facility] Blood Venous blood specimen / Unknown Venipuncture / Unknown 07/06/2024 1:34 PM EST 07/06/2024 4:51 PM EST us Carlos Templeton MD LAB BLOOD ORDERABLES Final R esult Performing Organization Address City/[facility]/ZIP Co de Phone Number [facility] [address] [place] [address], * Lactate dehydrogenase (07/06/2024 1:34 PM EST) [facility] LDH 206 120 - 246 unit/L LAB CHEMISTRY METHOD 07/06/2024 6:54 PM EST [facility] Blood Venous blood specimen / Unknown Venipuncture / Unknown 07/06/2024 1:34 PM EST 07/06/2024 4:50 PM EST us Carlos Templeton MD LAB BLOOD ORDERABLES Final R esult Performing Organization Address City/[facility]/ZIP Co de Phone Number [facility] [address] [place] [address], [place] [phone] * (ABNORMAL) Basic metabolic panel (07/06/2024 1:34 PM EST) Only the most recent of3 resultswithin the time period is included. [facility] Sodium 137 133 - 145 mmol/L LAB CHEMISTRY METHOD 07/06/2024 6:54 PM EST [facility] Potassium 5.3 3.5 - 5.5 mmol/L LAB CHEMISTRY METHOD 07/06/2024 6:54 PM [facility] Chloride 105 96 - 110 mmol/L LAB CHEMISTRY METHOD 07/06/2024 6:54 PM [facility] CO2 25 21 - 32 mmol/L LAB CHEMISTRY METHOD 07/06/2024 6:54 PM [facility] Anion Gap 7 3 - 11 LAB CHEMISTRY METHOD 07/06/2024 6:54 PM [facility] Glucose 102(H) 70 - 100 mg/dL LAB CHEMISTRY METHOD 07/06/2024 6:54 PM [facility] BUN 25 5 - 25 mg/dL LAB CHEMISTRY METHOD 07/06/2024 6:54 PM [facility] Creatinine 1.61(H) 0.50 - 1.10 mg/dL LAB CHEMISTRY METHOD 07/06/2024 6:54 PM [facility] eGFR 33(L) >=60 mL/min/1. 73m2 LAB CHEMISTRY METHOD 07/06/2024 6:54 PM [facility] Comment:Calculation based on the??Chronic Kidney Disease Epidemiology Collaboration (CKD-EPI) equation refit??without adjustment for race. BUN/Creatinine Ratio 15.5 LAB CHEMISTRY METHOD 07/06/2024 6:54 PM [facility] Calcium 10.2 8.5 - 10.5 mg/dL LAB CHEMISTRY METHOD 07/06/2024 6:54 PM [facility] Blood Venous blood specimen / Unknown Venipuncture / Unknown 07/06/2024 1:34 PM EST 07/06/2024 4:50 PM EST us Carlos Templeton MD LAB BLOOD ORDERABLES Final R esult [facility] [address] [place] [address], * Vascular US duplex lower extremity venous [...] saphenous refkuxing branch: left knee branch= 4120ms Employee Development Manager Details A ny scale, color and doppler analysis ultrasound was performed. During the study longitudinal and transverse views were obtained. Pulsed wave doppler was performed. us Susana ARCINIEGA CV VASCULAR PROCEDURES Final R esult * Vascular US duplex lower extremity arteries [...] PSV 67 cm/s CV VAS LAB Left POULTRY CULLER prox sys PSV 200 cm/s CV VAS [...] PSV 91 cm/s CV VAS LAB Right POULTRY CULLER prox sys PSV 159 cm/s CV VAS [...] The mid peroneal artery has biphasic flow. Employee Development Manager Details A ny scale, color and doppler analysis ultrasound was performed. During the study longitudinal views were obtained. Continuous wave doppler and pulsed wave doppler was performed. Overall the study quality was good. us Cristina ARCINIEGA CV VASCULAR PROCEDURES Final Result from Last 3 Months Insurance BLUE [employer]OSS - [place] MEDICARE ADVANTAGE Care Teams Notching Press Operator Relationship Specialty Start Date End Date Jerald Randhawa DO [address] [place] [phone] PCP - General 12/08/23
--- OUTSIDE RECORDS SUMMARY | 2024-07-12 10:59 | XMS_ITS | Encounter Summary ---
Author Organization [facility] Address [address] [place] [address] Care Team Providers Care Auto Wrecker Name Role Phone JerryJerald crawford Primary Care Provider [phone] Reason for Visit * Reason Comments Consult * Consultation (Routine) - Authorized Specialty Diagnoses / Procedures Referred By Beny t Referred To Contact Hematology and Oncology Diagnoses Elevated platelet count Jerald Randhawa DO [address] [place] [phone] Phone: tel: fax: Carlos Templeton MD [address] [place] [address] Phone: tel: fax: Referral ID Status Reason Start Date Expiration Date Visits Requested Visits Authorized [id number] Authorized Specialty Services Required 06/08/2024 06/08/2025 99 99 Encounter Details Date Type Department Care Team (Late st Contact Info) Description 07/06/2024 1:00 PM EST Office Visit [facility] Hematology Oncology [address] [place] [phone] Carlos Templeton MD [address] [place] [address] Thrombocytosis, unspecified Social History Tobacco Use Types Packs/Day Years [...] on file documented as of this encounter Last Filed Vital Signs Vital Sign Reading Time Taken Comments Blood Pressure 145/60 07/06/2024 1:06 PM EST Pulse 80 07/06/2024 1:06 PM EST Temperature 36.9 ??C (98.4 ??F) 07/06/2024 1:[address] Respiratory Rate - - Oxygen Saturation 99% 07/06/2024 1:06 PM EST Inhaled Oxygen Concentration - - Weight 56.7 kg (125 lb) 07/06/2024 1:06 PM EST Height 157.5 cm (5' 2 ) 07/06/2024 1:06 PM EST Body Mass Index 22.86 07/06/2024 1:06 PM EST documented in this encounter Progress Notes * Carlos Templeton MD - 07/06/2024 1:00 PM EST ONC CANCER INITIAL VISIT Dear Radha, Thank you very much for referring this patient for consultation. HPI: Patient is a very pleasant 74-year-old female, who found to have mild to moderate persistent thrombocytosis so patient referred to me for further hematological evaluation, patient denies any prior history or any significant family history of hematological disorder, patient has significantarthritis and has been taking pain medication, used to take NSAID but she stopped taking NSAID because of renal dysfunction ROS: GENERAL: No anorexia, early satiety, fever, chills, night sweats but has mild fatigue HEENT no headache or visual symptom NECK: No lumps, goiter, pain or significant neck swelling RESPIRATORY: No cough or shortness of breath CARDIOVASCULAR: No chest pain. GI: No abdominal discomfort, blood in stools or black stools MUSCULOSKELETAL: Has significant arthritic symptom HEMATOLOGY/LYMPHOLOGY No prolonged bleeding, easy bruisability or swollen nodes Other Systems review is non contributory PAST MEDICAL HISTORY: Patient Active Problem List Diagnosis Date Noted Arthritis 03/03/2024 Elevated HDL 03/03/2024 GERD without esophagitis 03/03/2024 HTN (hypertension) 03/03/2024 Stage 3a chronic kidney disease (CMS/HCC) 03/03/2024 Varicose veins of leg with edema 03/03/2024 PAST SURGICAL HISTORY: Past Surgical History: Procedure Laterality Date HERNIA REPAIR SOCIAL HISTORY: She quit smoking 20 years ago but she has secondhand smoking for decades () She used to drink socially She is lives with her FAMILY HISTORY: Noncontributory MEDICATIONS: Current Outpatient Medications: amLODIPine (NORVASC) 10 mg tablet, Take 1 Tablet by mouth daily., Disp: , Rfl: aspirin ([place]) 81 mg capsule, Take 81 mg by mouth daily., Disp: , Rfl: atorvastatin (LIPITOR) 20 mg tablet, Take 1 Tablet by mouth daily., Disp: , Rfl: lisinopriL (PRINIVIL,ZESTRIL) 20 mg tablet, Take 1 Tablet by mouth daily., Disp: , Rfl: No Known Allergies PHYSICAL EXAM: Visit Vitals BP (!) 145/60 (BP Location: Left arm, Patient Position: Sitting, BP Cuff Size: Adult) Pulse 80 Temp 36.9 ??C (98.4 ??F) (Temporal) Ht 1.575 m (62 ) Wt 56.7 kg (125 lb) SpO2 99% BMI 22.86 kg/m?? Smoking Status Former BSA 1.57 m?? ECOG 0 APPEARANCE: Alert and oriented in no acute distress EYES: nonicteric sclera pink conjunctiva ORAL CAVITY: No erythema or exudates NECK: Neck supple, no significant adenopathy, HEART: normal S1 and S2 LUNG: clear to auscultation bilaterally LYMPH NODES: No palpable superficial adenopathy ABDOMEN: soft, nontender and no splenomegaly/organomegaly appreciated. EXTREMITIES: No significant edema, arthritic changes in small joints of the hand LABS: Lab Results Component Value Date WBC 10.7 06/01/2024 HGB 11.9 06/01/2024 HCT 38.3 06/01/2024 MCV 98.2 (H) 06/01/2024 PLT 464 (H) 06/01/2024 ASSESSMENT 1. Thrombocytosis, unspecified Patient is a 74-year-old female, who has mild persistent thrombocytosis which is most likely reactive due to her pain, medication etc. it is very unlikely patient has any myeloproliferativedisease, explained patient in detail about different etiologies of elevated platelet, I told her I would like to review peripheral smear as well as check LDH sed rate and if possible JAK2 mutation test to rule out any significant myeloproliferative disease. I will see her back after these lab in next 1 to 2-week PLAN: Above labs today return to office in couple week for any further intervention Carlos Templeton MD cc: Jerald Randhawa DO documented in this encounter Plan of Treatment Upcoming Encounters Date Type Department Care Team (Late st Contact Info) Description 08/01/2024 1:15 PM EDT Office Visit [facility] Hematology Oncology [address] [place] [phone] Carlos Templeton MD [address] [place] [address] 08/04/2024 3:00 PM EDT Office Visit [facility] - [place] [address] [place] [phone] Susana Rossi PA [address] [place] [address] [place] [phone] documented as of this encounter Results * (ABNORMAL) Basic metabolic panel (07/06/2024 1:34 PM EST) Sodium 137 133 - 145 mmol/L LAB CHEMISTRY METHOD 07/06/2024 6:54 PM [facility] Potassium 5.3 3.5 - 5.5 mmol/L LAB CHEMISTRY METHOD 07/06/2024 6:54 PM [facility] Chloride 105 96 - 110 mmol/L LAB CHEMISTRY METHOD 07/06/2024 6:54 PM [facility] CO2 25 21 - 32 mmol/L LAB CHEMISTRY METHOD 07/06/2024 6:54 PM [facility] Anion Gap 7 3 - 11 LAB CHEMISTRY METHOD 07/06/2024 6:54 PM [facility] Glucose 102(H) 70 - 100 mg/dL LAB CHEMISTRY METHOD 07/06/2024 6:54 PM [facility] BUN 25 5 - 25 mg/dL LAB CHEMISTRY METHOD 07/06/2024 6:54 PM [facility] Creatinine 1.61(H) 0.50 - 1.10 mg/dL LAB CHEMISTRY METHOD 07/06/2024 6:54 PM [facility] eGFR 33(L) >=60 mL/min/1. 73m2 LAB CHEMISTRY METHOD 07/06/2024 6:54 PM [facility] Comment:Calculation based on the??Chronic Kidney Disease Epidemiology Collaboration (CKD-EPI) equation refit??without adjustment for race. BUN/Creatinine Ratio 15.5 LAB CHEMISTRY METHOD 07/06/2024 6:54 PM [facility] Calcium 10.2 8.5 - 10.5 mg/dL LAB CHEMISTRY METHOD 07/06/2024 6:54 PM [facility] Blood Venous blood specimen / Unknown Venipuncture / Unknown 07/06/2024 1:34 PM EST 07/06/2024 4:50 PM EST us Carlos Templeton MD LAB BLOOD ORDERABLES Final R esult [facility] [address] [place] [address], [place] [phone] * Sedimentation rate (07/06/2024 1:34 PM EST) Sed Rate 9 0 - 30 mm/hr LAB HEMETOLOGY METHOD 07/06/2024 5:23 PM EST [facility] Blood Venous blood specimen / Unknown Venipuncture / Unknown 07/06/2024 1:34 PM EST 07/06/2024 4:51 PM EST us Carlos Templeton MD LAB BLOOD ORDERABLES Final R esult [facility] [address] [place] [address], [place] [phone] * Lactate dehydrogenase (07/06/2024 1:34 PM EST) LDH 206 120 - 246 unit/L LAB CHEMISTRY METHOD 07/06/2024 6:54 PM EST [facility] Blood Venous blood specimen / Unknown Venipuncture / Unknown 07/06/2024 1:34 PM EST 07/06/2024 4:50 PM EST us Carlos Templeton MD LAB BLOOD ORDERABLES Final R esult [facility] [address] [place] [address], documented in this encounter Visit Diagnoses Diagnosis Thrombocytosis, unspecified documented in this encounter Orders Outpatient Referral Count Last Ordered Date Fir st Ordered Date AMB REFERRAL TO HEMATOLOGY / ONCOLOGY 1 documented in this encounter Care Teams Auto Wrecker Relationship Specialty Start Date End Date Jerald Randhawa DO [address] [place] [phone] PCP - General 12/08/23 documented as of this encounter
== END 2024-07-12 09:40 | disposition home or self-care (01) ==
LOC: HO.HMGCX 09:39
PROVIDERS: PCP Internal Medicine; Visit Provider Internal Medicine Nephrology
DX: I12.9 Hypertensive chronic kidney disease with stage 1 through stage 4 chronic kidney disease, or unspecified chronic kidney disease (principal); N18.31 Chronic kidney disease, stage 3a
CPT/HCPCS: 76775; 93975

== ENCOUNTER → 2024-07-12 09:42 | Outpatient (BNV) | payer BC, SELFPAY | PROVIDERS: PCP Internal Medicine; Visit Provider Radiology Diagnostic Radiology | DX: N18.31 Chronic kidney disease, stage 3a (principal) | CPT/HCPCS: 76775; 93975 ==

== ENCOUNTER 2024-07-25 10:56 | Outpatient (REF) | payer BC, SELFPAY ==
[2024-07-25 19:05] LABS: Total Volume 24 Hour Urine 825 mL
[2024-07-25 19:19] LABS: Creatinine, 24Hr Urine 0.4 G/Day (1.0-2.0); Creatinine, mg/dL 52.44
[2024-07-25 19:20] LABS: Parathyroid Hormone Intact 128.3 pg/mL (8.7-77.1)
[2024-07-25 19:25] LABS: Creatinine Urine 135.49 mg/dL; Total Protein Urine Random 13 mg/dL (<12)
[2024-07-25 19:28] LABS: Anion Gap 14 (12-20); Blood Urea Nitrogen 18 mg/dL (9-16); Calcium 9.6 mg/dL (8.4-10.2); Carbon Dioxide 25 mmol/L (22-29); Chloride 105 mmol/L (96-108); Estimated Glomerular Filt Rate 38; Phosphorus 3.3 mg/dL (2.7-4.5); Potassium 4.5 mmol/L (3.3-5.1); Sodium 139 mmol/L (135-145)
[2024-07-25 19:35] LABS: Vitamin D 25-OH Total 91.4 ng/mL (>30)
[2024-07-25 19:40] LABS: Creatinine (CrCl) 1.35 mg/dL (0.5-1.4); Creatinine Clearance 22.2 mL/min (85-125)
[2024-07-27 15:32] LABS: IgA 97 mg/dL (70-320); IgG 638 mg/dL (600-1540); IgM 48 mg/dL (50-300)
== END 2024-07-25 10:57 | disposition home or self-care (01) ==
LOC: HO.HKASLDS 10:56
PROVIDERS: Visit Provider Internal Medicine Nephrology
DX: I10 Essential (primary) hypertension (principal); N18.31 Chronic kidney disease, stage 3a; I12.9 Hypertensive chronic kidney disease with stage 1 through stage 4 chronic kidney disease, or unspecified chronic kidney disease
CPT/HCPCS: 80051; 82306; 82310; 82565; 82570; 82575; 82784; 83970; 84100; 84156; 84520; 86334; 86335

== ENCOUNTER 2024-07-27 15:12 | Outpatient (REF) | payer BC, SELFPAY ==
[2024-07-27 18:20] LABS: Appearance Urine Clear; Color Urine Yellow; Glucose Urine UA Negative (Negative); Leukocyte Esterase Urine Moderate (2+) (Negative); Nitrite Urine Negative (Negative); PH 5.5 (5.0-9.0); UMIC TRIGGER UA YES; Urine Blood Negative (Negative); Urine Ketones Trace mg/dL (Negative); Urine Protein Negative (Neg-Trace)
[2024-07-27 18:52] LABS: Bacteria Urine None Seen (None Seen); Squamous Epithelial Cell Urine 0-2 /HPF (0-2)
== END 2024-07-27 15:13 | disposition home or self-care (01) ==
LOC: HO.HKASLDS 15:12
PROVIDERS: Visit Provider Internal Medicine Nephrology
DX: I12.9 Hypertensive chronic kidney disease with stage 1 through stage 4 chronic kidney disease, or unspecified chronic kidney disease (principal); N18.31 Chronic kidney disease, stage 3a
CPT/HCPCS: 81001

== ENCOUNTER 2024-07-27 15:12 | Outpatient (AMB) | payer BC, SELFPAY ==
--- NOTE | 2024-07-27 15:12 | HO.NEPHOV ---
Vital Signs 07/27/24 15:19 Height 5 ft 2.5 in Weight 125 lb 2 oz BMI 22.5 BP 120/60 Blood Pressure Location Lt brachial Position Sitting Pulse 85 Pulse Source Pulse Oximeter Pulse Oximetry (%) 92 Oxygen Delivery Method Room Air Intake Visit Reasons: 1m follow up-[facility] Allocation Analyst Required: No Accompanied by: Spouse Allergies No Known Allergies Allergy (Verified 07/27/24 15:19) HPI Comments Details: I had the privilege of seeing Mona for follow up of CKD stage 3. She is 74 years of age and was accompanied by her . She has hypertension for long time and had been taking lisinopril as well as amlodipine. She gets blood pressure checked at home and has been at goal. She denies any nausea, vomiting, diarrhea, pedal edema, paroxysmal nocturnal dyspnea,, orthopnea, hematuria. She has history of renal calculus. She is very active and exercises every day. She eats a low-sodium diet, counts calories and eats a lot of fruits and vegetables. She had taken proton pump inhibitor in the past. She maintains good hydration. She denies any chest pain, palpitation, syncope, history of coronary artery disease, congestive heart failure, CVA, carotid stenosis, peripheral arterial disease. She denies sinusitis, epistaxis, sore throat, hematuria, weight loss, night sweats, history of malignancy. She has arthritis but denies taking nonsteroidal anti-inflammatories on a regular basis. She is concerned that her serum creatinine has gone up. [facility] Medical History (Updated 06/29/24 @ 13:53 by Vidal Sanford MD) Enlarged thyroid Osteoporosis Glaucoma Nephrolithiasis Arthritis Chronic kidney disease, stage 3 Hyperlipidemia Hypertension Surgical History (Updated 06/27/24 @ 14:50 by Lissette Pan MA) H/O hernia repair Social History (Updated 06/27/24 @ 14:49 by Lissette Pan MA) Alcohol intake: current Patient Tobacco Use Status: Former Tobacco user Review of Systems Const All systems reviewed & are unremarkable except as noted in HPI and below Physical Exam Const General: comfortable and no acute distress Orientation/consciousness: patient oriented x3 HEENT Head: Yes normocephalic Mouth: Normal oral and palatal mucosa present Eyes EOM: EOMs intact bilaterally Neck Neck: Yes supple Resp Auscultation: clear to auscultation bilaterally Cardio Jugular venous distension: no JVD Rate: regular rate GI Palpation (GI): Soft to palpation Auscultation: normal bowel sounds General: Yes no CVA tenderness Back/Spine/Pelvis Back: no CVA tenderness Skin General skin exam: no rashes or lesions noted Neuro General: patient oriented x3 and moves all extremities Extrem General: Yes no pedal edema Results Reviewed Nephrology Results: Sodium 139 mmol/L (135-145) 07/25/24 Potassium 4.5 mmol/L (3.3-5.1) 07/25/24 Chloride 105 mmol/L (96-108) 07/25/24 Carbon Dioxide 25 mmol/L (22-29) 07/25/24 BUN 18 mg/dL (9-16) H 07/25/24 Creatinine 1.35 mg/dL (0.5-1.4) 07/25/24 Calcium 9.6 mg/dL (8.4-10.2) 07/25/24 Phosphorus 3.3 mg/dL (2.7-4.5) 07/25/24 PTH Intact 128.3 pg/mL (8.7-77.1) H 07/25/24 Urine Creatinine 135.49 mg/dL 07/25/24 Protein/Creatinin Ratio 0.10 (<0.2) 07/25/24 Renal US 07/12/24 Assessment & Plan Assessment & Plan (1) CKD stage 3a, GFR 45-59 ml/min: Code(s): N18.31 - Chronic kidney disease, stage 3a Category: Medical (2) Hypertension: Code(s): I10 - Essential (primary) hypertension Category: Medical Qualifiers: Hypertension type: primary hypertension Qualified Code(s): I10 - Essential (primary) hypertension Plan Mona has had chronic kidney disease stage 3 at baseline most likely due to hypertension, vascular disease along with he related loss of renal functions. She has been on FALGUNI-inhibitor for a long time. She has renovascular disease, confirmed by Doppler of her renal arteries . She was encouraged to maintain good hydration and avoid nonsteroidal anti-inflammatories. Her blood pressure needs to maintained at goal. If her serum creatinine rises, I shall back off on her ACEI. Further management is pending evolving data. All these have been explained in detail. Answered her and her 's questions. Follow-up appointment given Orders: Orders Creatinine 6 Months I10 - Essential (primary) hypertension, N18.31 - Chronic kidney disease, stage 3a Blood Urea Nitrogen 6 Months I10 - Essential (primary) hypertension, N18.31 - Chronic kidney disease, stage 3a Electrolytes 6 Months I10 - Essential (primary) hypertension, N18.31 - Chronic kidney disease, stage 3a Coding Level of Care Code Est Pt Level 4 (32712) Diagnoses CKD stage 3a, GFR 45-59 ml/min N18.31 Primary hypertension I10 Hypertension type: primary hypertension
[2024-07-27 15:19] VITALS: BP 120/60; PULSE 85; O2SAT 92; BMI 22.5
== END 2024-07-27 15:47 | disposition home or self-care (01) ==
LOC: HO.HKAS 15:12
PROVIDERS: PCP Internal Medicine; Visit Provider Internal Medicine Nephrology
DX: N18.31 Chronic kidney disease, stage 3a (principal); I10 Essential (primary) hypertension
CPT/HCPCS: 99214

== ENCOUNTER 2024-12-08 13:50 | Outpatient (AMB) | payer BC, SELFPAY ==
--- OUTSIDE RECORDS SUMMARY | 2024-12-08 13:53 | XMS_ITS | Clinical Summary ---
Author Organization [address] [facility] Address [address] [place] [address] Phone Care Team Providers Care [employer] Name Role Phone Jerald Randhawa DO Primary Care Provider [phone] Allergies No known active allergies Medications amLODIPine (NORVASC) 10 mg tablet Take 1 Tablet by mouth daily. Active aspirin ([place]) 81 mg capsule Take 81 mg by mouth daily. Active atorvastatin (LIPITOR) 20 mg tablet Take 1 Tablet by mouth daily. Active lisinopriL (PRINIVIL,ZESTR IL) 20 mg tablet Take 1 Tablet by mouth daily. Active coenzyme Q-10 30 mg capsule Take 1 capsule (30 mg total) by mouth 1 (one) time each day. Active Active Problems Problem Noted Date Diagnosed Date Arthritis 03/03/2024 Elevated HDL 03/03/2024 GERD without esophagitis 03/03/2024 HTN (hypertension) 03/03/2024 Stage 3a chronic kidney disease ([facility] V24, [facility] S/[facility] V28) 03/03/2024 Varicose veins of leg with edema 03/03/2024 Surgical History Surgery Date Site/Laterality Comments HERNIA REPAIR Medical History Medical History Date Comments Hyperlipidemia Hypertension Thrombocytosis CKD (chronic kidney disease) stage 3, GFR 30-59 ml/min ([facility] V24, [facility] V28) Osteoporosis GERD (gastroesophageal reflux disease) Social History [...] Sign Reading Time Taken Comments Blood Pressure 130/68 08/04/2024 2:43 PM EDT Pulse 79 08/04/2024 2:43 PM EDT Temperature 36.7 C (98 F) 08/01/2024 1:18 PM EDT Respiratory Rate - - Oxygen Saturation 98% 08/01/2024 1:18 PM EDT Inhaled Oxygen Concentration - - Weight 57.2 kg (126 lb) 08/04/2024 2:43 PM EDT Height 157.5 cm (5' 2 ) 08/04/2024 2:43 PM EDT Body Mass Index 23.05 08/04/2024 2:43 PM EDT Plan of Treatment Upcoming Encounters Date Type Department Care Team (Late st Contact Info) Description 06/04/2025 12:00 PM EST Ancillary Procedure [facility] [address] [facility] [address] [place] [address] 08/03/2025 3:00 PM EDT Office Visit Vascular Surgery - [place] [address] [place] [address] Susana Rossi PA 300 [facility] [address] [place] [address] Health Maintenance Due Date Last Done Comments COVID-19 Vaccine (#1) 1955 Falls Risk Assessment 04/11/2022 Hepatitis C Screening 04/11/2022 Medicare Annual Wellness Visit 04/11/2022 Osteoporosis Screening (Bone Density Screening) 04/11/2022 Social Influencers of Health Screening 04/11/2022 RSV Immunization Adult Patients (1 - 1-dose 75+ series) 2023 Depression Screening 05/10/2024 DTaP,Tdap,and Td Vaccines (2 - Td or Tdap) 08/08/2024 08/08/2014 Influenza Vaccine (#1) 2025 , 06/06/2019, 03/24/2017 Hypertension/CHF/CAD Annual BMP Blood Test 12/01/2025 12/01/2024, 11/22/2024, 07/06/2024, Additional history exists Cholesterol Screening (Lipid Panel) 11/22/2029 11/22/2024 Pneumococcal Vaccine: 50+ Years Completed 05/24/2018, 12/16/2016 [...] age to complete this topic Meningococcal B Vaccine Aged Out No l onger eligible based on patient's age to complete this topic RSV Immunization Patients Under 20 months Aged Out No longer eligible based on patient's age to complete this topic Varicella Vaccines Aged Out No longer eligible based on patient's age to complete this topic Procedures Procedure Name Priority Date/Time Associated Diagnosis Comments CBC WITH AUTO DIFFERENTIAL Routine 12/01/2024 11:47 AM EDT Hyponatremia Leukocytosis CBC AND DIFFERENTIAL Routine 12/01/2024 11:47 AM EDT Hyponatremia Leukocytosis BASIC METABOLIC PANEL Routine 12/01/2024 11:47 AM EDT Hyponatremia Leukocytosis CBC WITH AUTO DIFFERENTIAL Routine 11/22/2024 1:45 PM EDT Routine general medical examination at a health care facility HTN (hypertension) CKD (chronic kidney disease) HEMOGLOBIN A1C Routine 11/22/2024 1:45 PM EDT Routine general medical examination at a [facility] care facility HTN (hypertension) CKD (chronic kidney disease) Abnormal finding of blood chemistry, unspecified CBC AND DIFFERENTIAL Routine 11/22/2024 1:45 PM EDT Routine general medical examination at a [facility] care facility HTN (hypertension) CKD (chronic kidney disease) COMPREHENSIVE METABOLIC PANEL Routine 11/22/2024 1:45 PM EDT Routine general medical examination at a [facility] facility HTN (hypertension) CKD (chronic kidney disease) THYROID STIMULATING HORMONE Routine 11/22/2024 1:45 PM EDT Routine general medical examination at a [facility] facility HTN (hypertension) CKD (chronic kidney disease) LIPID PANEL WITH REFLEX TO DIRECT LDL Routine 11/22/2024 1:45 PM EDT Routine general medical examination at a [facility] facility HTN (hypertension) CKD (chronic kidney disease) from Last 3 Months Results * (ABNORMAL) CBC auto differential (12/01/2024 11:47 AM EDT) Only the most recent of2 resultswithin the time period is included. WBC 12.6(H) 4.8 - 10.8 K/mcL LAB HEMETOLOGY METHOD 12/01/2024 3:32 PM [facility] RBC 3.60(L) 3.80 - 4.80 M/mcL LAB HEMETOLOGY METHOD 12/01/2024 3:32 PM [facility] Hemoglobin 11.0(L) 11.5 - 16.0 g/dL LAB HEMETOLOGY METHOD 12/01/2024 3:32 PM [facility] Hematocrit 34.3(L) 35.0 - 47.0 % LAB HEMETOLOGY METHOD [facility] MCV 94.2 79.0 - 98.0 FL LAB HEMETOLOGY METHOD 12/01/2024 3:32 PM [facility] MCH 30.2 27.0 - 32.0 pcg LAB HEMETOLOGY METHOD 12/01/2024 3:32 PM [facility] MCHC 32.1 32.0 - 37.0 g/dL LAB HEMETOLOGY METHOD 12/01/2024 3:32 PM EDT [facility] RDW 14.4 11.0 - 15.0 % LAB HEMETOLOGY METHOD 12/01/2024 3:32 PM [facility] Platelets 603(H) 130 - 400 K/mcL LAB HEMETOLOGY METHOD 12/01/2024 3:32 PM T [facility] MPV 8.7 7.0 - 11.0 FL LAB HEMETOLOGY METHOD 12/01/2024 3:32 PM [facility] NRBC 0.0 <1.0 % LAB HEMETOLOGY METHOD 12/01/2024 3:32 PM [facility] NRBC Absolute 0.00 <0.10 K/mcL LAB HEMETOLOGY METHOD 12/01/2024 3:32 PM [facility] Neutrophils Relative 66.8 % LAB HEMETOLOGY METHOD 12/01/2024 3:32 PM [facility] Lymphocytes Relative 19.6 % LAB HEMETOLOGY METHOD 12/01/2024 3:32 PM [facility] Monocytes Relative 8.8 % LAB HEMETOLOGY METHOD 12/01/2024 3:32 PM [facility] Eosinophils Relative 3.4 % LAB HEMETOLOGY METHOD 12/01/2024 3:32 PM [facility] Basophils Relative 0.8 % LAB HEMETOLOGY METHOD 12/01/2024 3:32 PM [facility] Immature Granulocytes Relative 0.6 % LAB HEMETOLOGY METHOD 12/01/2024 3:32 PM [facility] Neutrophils Absolute 8.45(H) 1.50 - 7.00 K/mcL LAB HEMETOLOGY METHOD 12/01/2024 3:32 PM [facility] Lymphocytes Absolute 2.47 1.00 - 5.00 K/mcL LAB HEMETOLOGY METHOD 12/01/2024 3:32 PM EDT [facility] Monocytes Absolute 1.11(H) 0.20 - 1.00 K/[facility] LAB HEMETOLOGY METHOD 12/01/2024 3:32 PM EDT [facility] Eosinophils Absolute 0.43 0.00 - 0.50 K/[facility] LAB HEMETOLOGY METHOD 12/01/2024 3:32 PM EDT [facility] Basophils Absolute 0.10 0.00 - 0.20 K/[facility] LAB HEMETOLOGY METHOD 12/01/2024 3:32 PM EDT [facility] Immature Granulocytes Absolute 0.07(H) 0.00 - 0.03 K/[facility] LAB HEMETOLOGY METHOD 12/01/2024 3:32 PM EDT [facility] Blood Venous blood specimen / Unknown Venipuncture / Unknown 12/01/2024 11:47 AM EDT 12/01/2024 11:47 AM EDT [facility] LAB BLOOD ORDERABLES Final Resul t [facility] [address] [place] [address], * (ABNORMAL) Basic metabolic panel (12/01/2024 11:47 AM EDT) Sodium 125(L) 133 - 145 mmol/L LAB CHEMISTRY METHOD 12/01/2024 4:17 PM EDT [facility] Potassium 4.7 3.5 - 5.5 mmol/L LAB CHEMISTRY METHOD 12/01/2024 4:17 PM EDT [facility] Chloride 91(L) 96 - 110 mmol/L LAB CHEMISTRY METHOD 12/01/2024 4:17 PM EDT [facility] CO2 25 21 - 32 mmol/L LAB CHEMISTRY METHOD 12/01/2024 4:17 PM EDT [facility] Anion Gap 9 3 - 11 LAB CHEMISTRY METHOD 12/01/2024 4:17 PM EDT [facility] Glucose 96 70 - 100 mg/dL LAB CHEMISTRY METHOD 12/01/2024 4:17 PM T [facility] BUN 16 5 - 25 mg/dL LAB CHEMISTRY METHOD 12/01/2024 4:17 PM EDT [facility] Creatinine 1.62(H) 0.50 - 1.10 mg/dL LAB CHEMISTRY METHOD 12/01/2024 4:17 PM EDT [facility] eGFR 33(L) >=60 mL/min/1. 73m2 LAB CHEMISTRY METHOD 12/01/2024 4:17 PM EDT [facility] Comment:Calculation based on the Chronic Kidney Disease Epidemiology Collaboration (CKD-EPI) equation refit without adjustment for race. BUN/Creatinine Ratio 9.9 LAB CHEMISTRY METHOD 12/01/2024 4:17 PM T [facility] Calcium 10.4 8.5 - 10.5 mg/dL LAB CHEMISTRY METHOD 12/01/2024 4:17 PM [facility] Blood Venous blood specimen / Unknown Venipuncture / Unknown 12/01/2024 11:47 AM EDT 12/01/2024 11:47 AM EDT [facility] LAB BLOOD ORDERABLES Final Resul t [facility] [address] [place] [address], * Lipid panel with reflex to direct LDL (11/22/2024 1:45 PM EDT) Cholesterol 153 0 - 200 mg/dL LAB CHEMISTRY METHOD 11/22/2024 4:43 PM EDT [facility] Triglycerides 87 0 - 150 mg/dL LAB CHEMISTRY METHOD 11/22/2024 4:43 PM EDT [facility] HDL 81 >=40 mg/dL LAB CHEMISTRY METHOD 11/22/2024 4:43 PM EDT [facility] LDL Calculated 55 0 - 100 mg/dL LAB CHEMISTRY METHOD 11/22/2024 4:43 PM EDT [facility] VLDL Cholesterol Wale 17.4 mg/dL LAB CHEMISTRY METHOD 11/22/2024 4:43 PM EDT [facility] Non HDL Chol. (LDL+VLDL) 72 <145 mg/dL LAB CHEMISTRY METHOD 11/22/2024 4:43 PM EDT [facility] Chol/HDL Ratio 1.9 0.0 - 4.4 LAB CHEMISTRY METHOD 11/22/2024 4:43 PM EDT [facility] Blood Venous blood specimen / Unknown Venipuncture / Unknown 11/22/2024 1:45 PM EDT 11/22/2024 1:45 PM EDT [facility] LAB BLOOD ORDERABLES Final Resul t Performing Organization Address City/[facility]/ZIP Co de Phone Number [facility] [address] [place] [address], [place] [phone] * Thyroid stimulating hormone (11/22/2024 1:45 PM EDT) TSH 0.63 0.40 - 4.00 mcIU/mL LAB CHEMISTRY METHOD 11/22/2024 5:02 PM EDT [facility] Blood Venous blood specimen / Unknown Venipuncture / Unknown 11/22/2024 1:45 PM EDT 11/22/2024 1:45 PM EDT [facility] LAB BLOOD ORDERABLES Final Resul t Performing Organization Address City/[facility]/ZIP Co de Phone Number [facility] [address] [place] [address], [place] [phone] * Hemoglobin A1c (11/22/2024 1:45 PM EDT) [facility] Hemoglobin A1C 6.0 <6.5 % LAB CHEMISTRY METHOD 11/22/2024 8:12 PM EDT [facility] Mean Bld Glu Estim. 126 mg/dL LAB CHEMISTRY METHOD 11/22/2024 8:12 PM EDT [facility] Blood Venous blood specimen / Unknown Venipuncture / Unknown 11/22/2024 1:45 PM EDT 11/22/2024 1:45 PM EDT [facility] LAB BLOOD ORDERABLES Final Resul t [facility] [address] [place] [address], * (ABNORMAL) Comprehensive metabolic panel (11/22/2024 1:45 PM EDT) [facility] Sodium 128(L) 133 - 145 mmol/L LAB CHEMISTRY METHOD 11/22/2024 4:40 PM T [facility] Potassium 4.9 3.5 - 5.5 mmol/L LAB CHEMISTRY METHOD 11/22/2024 4:40 PM [facility] Chloride 93(L) 96 - 110 mmol/L LAB CHEMISTRY METHOD 11/22/2024 4:40 PM T [facility] CO2 26 21 - 32 mmol/L LAB CHEMISTRY METHOD 11/22/2024 4:40 PM T [facility] Anion Gap 9 3 - 11 LAB CHEMISTRY METHOD 11/22/2024 4:40 PM T [facility] Glucose 89 70 - 100 mg/dL LAB CHEMISTRY METHOD 11/22/2024 4:40 PM T [facility] BUN 19 5 - 25 mg/dL LAB CHEMISTRY METHOD 11/22/2024 4:40 PM T [facility] Creatinine 1.55(H) 0.50 - 1.10 mg/dL LAB CHEMISTRY METHOD 11/22/2024 4:40 PM EDT [facility] eGFR 35(L) >=60 mL/min/1. 73m2 LAB CHEMISTRY METHOD 11/22/2024 4:40 PM T [facility] Comment:Calculation based on the Chronic Kidney Disease Epidemiology Collaboration (CKD-EPI) equation refit without adjustment for race. BUN/Creatinine Ratio 12.3 LAB CHEMISTRY METHOD 11/22/2024 4:40 PM T [facility] Calcium 10.2 8.5 - 10.5 mg/dL LAB CHEMISTRY METHOD 11/22/2024 4:40 PM [facility] AST (SGOT) 19 10 - 42 unit/L LAB CHEMISTRY METHOD 11/22/2024 4:40 PM [facility] ALT (SGPT) 27 10 - 60 unit/L LAB CHEMISTRY METHOD 11/22/2024 4:40 PM T [facility] Alkaline Phosphatase 54 42 - 121 unit/L LAB CHEMISTRY METHOD 11/22/2024 4:40 PM [facility] Total Protein 7.4 6.0 - 8.0 g/dL LAB CHEMISTRY METHOD 11/22/2024 4:40 PM [facility] Albumin 4.6 3.2 - 5.0 g/dL LAB CHEMISTRY METHOD 11/22/2024 4:40 PM [facility] Total Bilirubin 0.4 0.0 - 1.4 mg/dL LAB CHEMISTRY METHOD 11/22/2024 4:40 PM [facility] Blood Venous blood specimen / Unknown Venipuncture / Unknown 11/22/2024 1:45 PM EDT 11/22/2024 1:45 PM EDT [facility] LAB BLOOD ORDERABLES Final Resul t [facility] [address] [place] [address], [place] [phone] from Last 3 Months Insurance [employer] - [place] MEDICARE ADVANTAGE Care Teams [employer] Relationship Specialty Start Date End Date Jerald Randhawa DO [address] [place] [address] [phone] PCP - General 12/08/23
--- NOTE | 2024-12-08 13:56 | HO.NEPHOV_ITS ---
Vital Signs 12/08/24 13:57 Height 5 ft 2.5 in Weight 114 lb BMI 20.5 BP 110/60 Blood Pressure Location Rt brachial Position Sitting Pulse 87 Pulse Source Pulse Oximeter Pulse Oximetry (%) 97 Oxygen Delivery Method Room Air Intake Visit Reasons: Per MD Junior Estimator Required: No Accompanied by: Spouse Allergies No Known Allergies Allergy (Verified 12/08/24 13:57) HPI Comments Details: Mona is here for follow up, had increase in creatinine and low sodium on recent labs. creatinine was 1.35 in July, November is 1.62. Denies recent illness, denies vomiting/diarrhea, dehydration. she states she drinks a lot of water- states three big water bottles daily, in addition to coffee. Does not like to add electrolytes to her water, drinks straight water. States she has been adding more salt to her diet since hearing that her sodium level in her blood is low. Denies new shortness of breath/respiratory symptoms, denies new pain, nausea, alcohol use. Denies new prescription or OTC medication use, denies use of NSAIDs. Denies weight loss, fatigue/malaise, night sweats. Denies other new changes, concerns. 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) Enlarged thyroid Osteoporosis Glaucoma Nephrolithiasis Arthritis Chronic kidney disease, stage 3 Hyperlipidemia Hypertension Surgical History H/O hernia repair Social History Alcohol intake: current Patient Tobacco Use Status: Former Tobacco user Review of Systems Const All systems reviewed & are unremarkable except as noted in HPI and below Physical Exam Vital Signs: Last Vital Signs Pulse 87 12/08/24 13:57 BP 110/60 12/08/24 13:57 Pulse Ox 97 12/08/24 13:57 Oxygen Delivery Method Room Air 12/08/24 13:57 BMI result Body Mass Index 20.5 Const General: comfortable and no acute distress Orientation/consciousness: patient oriented x3 HEENT Head: Yes normocephalic Mouth: Normal oral and palatal mucosa present Eyes EOM: EOMs intact bilaterally Neck Neck: Yes supple Resp Auscultation: clear to auscultation bilaterally Cardio Jugular venous distension: no JVD Rate: regular rate GI Palpation (GI): Soft to palpation Auscultation: normal bowel sounds General: Yes no CVA tenderness Back/Spine/Pelvis Back: no CVA tenderness Skin General skin exam: no rashes or lesions noted Neuro General: patient oriented x3 and moves all extremities Extrem General: Yes no pedal edema Results Reviewed Nephrology Results: Sodium, (135-145) 139 mmol/L 07/25/24 Potassium, (3.3-5.1) 4.5 mmol/L 07/25/24 Chloride, (96-108) 105 mmol/L 07/25/24 Carbon Dioxide, (22-29) 25 mmol/L 07/25/24 BUN, (9-16) 18 mg/dL H 07/25/24 Creatinine, (0.5-1.4) 1.35 mg/dL 07/25/24 Calcium, (8.4-10.2) 9.6 mg/dL 07/25/24 Phosphorus, (2.7-4.5) 3.3 mg/dL 07/25/24 PTH Intact, (8.7-77.1) 128.3 pg/mL H 07/25/24 Urine Protein, (Neg-Trace) Negative mg/dL 07/27/24 Urine Creatinine 135.49 mg/dL 07/25/24 Protein/Creatinin Ratio, (<0.2) 0.10 07/25/24 Renal US 07/12/24 Assessment & Plan Assessment & Plan (1) CKD stage 3a, GFR 45-59 ml/min: Code(s): N18.31 - Chronic kidney disease, stage 3a Category: Medical (2) Hypertension: Code(s): I10 - Essential (primary) hypertension Category: Medical Qualifiers: Hypertension type: primary hypertension Qualified Code(s): I10 - Essential (primary) hypertension Plan Mona has CKD most likely from hypertension and vascular disease. Creatinine has been trending upward, will cut lisinopril in half to 10mg daily (currently taking 20mg daily). hyponatremia- likely from excess free water intake. Advised to cut down to two water bottles a day from three. Advised to also minimize coffee intake as this has a similar effect to drinking water. Discussed not to add much salt to diet given her vasuclar disease and hypertension. Advised to avoid NSAIDs and get regular physical activity. she will follow up in three weeks, re-check her labs prior to visit. Orders: Orders Osmolality Urine 12/07/24 E87.1 - Hypo-osmolality and hyponatremia Basic Metabolic Panel 3 Weeks E87.1 - Hypo-osmolality and hyponatremia, N18.30 - Chronic kidney disease, stage 3 unspecified Sodium Urine Random 3 Weeks E87.1 - Hypo-osmolality and hyponatremia Sodium Urine Random 12/07/24 E87.1 - Hypo-osmolality and hyponatremia Osmolality Urine 3 Weeks E87.1 - Hypo-osmolality and hyponatremia Medications: Changed From lisinopril PO DAILY I10 - Essential (primary) hypertension, N18.31 - Chronic kidney disease, stage 3a To lisinopril 10 mg (1/2 x 20 mg) PO DAILY 90 tabs 1RF 90 days I10 - Essential (primary) hypertension, N18.31 - Chronic kidney disease, stage 3a Coding Level of Care Code Est Pt Level 3 (63788) Diagnoses CKD stage 3a, GFR 45-59 ml/min N18.31 Primary hypertension I10 Hypertension type: primary hypertension
[2024-12-08 13:57] VITALS: BP 110/60; PULSE 87; O2SAT 97; BMI 20.5
== END 2024-12-08 14:19 | disposition home or self-care (01) ==
LOC: HO.HKA 13:51
PROVIDERS: PCP Internal Medicine; Visit Provider Nurse Practitioner Family
DX: N18.31 Chronic kidney disease, stage 3a (principal); I10 Essential (primary) hypertension
CPT/HCPCS: 99213

== ENCOUNTER 2025-01-25 14:01 | Outpatient (AMB) | payer BC, SELFPAY ==
--- NOTE | 2025-01-25 14:15 | HO.NEPHOV_ITS ---
Vital Signs 01/25/25 14:16 Height 5 ft 2.5 in Weight 111 lb 2 oz BMI 20.0 BP 104/60 Blood Pressure Location Lt brachial Position Sitting Pulse 80 Pulse Source Pulse Oximeter Pulse Oximetry (%) 100 Oxygen Delivery Method Room Air Intake Visit Reasons: 6mon follow-up w/labs-Conf Customer Counter Associate Required: No Accompanied by: Spouse Allergies No Known Allergies Allergy (Verified 01/25/25 14:16) HPI Comments Details: Mona was seen in for follow up of CKD stage 3. She is 74 years of age and was accompanied by her . She has hypertension for long time and had been taking lisinopril as well as amlodipine. She gets blood pressure checked at home and has been at goal. She denies any nausea, vomiting, diarrhea, pedal edema, paroxysmal nocturnal dyspnea,, orthopnea, hematuria. She has history of renal calculus. She is very active and exercises every day. She eats a low- sodium diet, counts calories and eats a lot of fruits and vegetables. She had taken proton pump inhibitor in the past. She maintains good hydration. She denies any chest pain, palpitation, syncope, history of coronary artery disease, congestive heart failure, CVA, carotid stenosis, peripheral arterial disease. She denies sinusitis, epistaxis, sore throat, hematuria, weight loss, night sweats, history of malignancy. She has arthritis but denies taking nonsteroidal anti-inflammatories on a regular basis. Her serum creatinine is close to baseline now. [facility] Medical History (Updated 12/07/24 @ 09:06 by Lexie Alva, DNP, PICTURE PAINTER-) Enlarged thyroid Osteoporosis Glaucoma Nephrolithiasis Arthritis Chronic kidney disease, stage 3 Hyperlipidemia Hypertension Surgical History H/O hernia repair Social History Alcohol intake: current Patient Tobacco Use Status: Former Tobacco user Review of Systems Const All systems reviewed & are unremarkable except as noted in HPI and below Physical Exam Vital Signs: Last Vital Signs Pulse 80 01/25/25 14:16 BP 104/60 01/25/25 14:16 Pulse Ox 100 01/25/25 14:16 Oxygen Delivery Method Room Air 01/25/25 14:16 BMI result Body Mass Index 20.0 Const General: comfortable and no acute distress Orientation/consciousness: patient oriented x3 HEENT Head: Yes normocephalic Mouth: Normal oral and palatal mucosa present Eyes EOM: EOMs intact bilaterally Neck Neck: Yes supple Resp Auscultation: clear to auscultation bilaterally Cardio Jugular venous distension: no JVD Rate: regular rate GI Palpation (GI): Soft to palpation Auscultation: normal bowel sounds General: Yes no CVA tenderness Back/Spine/Pelvis Back: no CVA tenderness Skin General skin exam: no rashes or lesions noted Neuro General: patient oriented x3 and moves all extremities Extrem General: Yes no pedal edema Results Reviewed Nephrology Results: Sodium, (135-145) 141 mmol/L 01/25/25 Potassium, (3.3-5.1) 4.6 mmol/L 01/25/25 Chloride, (96-108) 106 mmol/L 01/25/25 Carbon Dioxide, (22-29) 26 mmol/L 01/25/25 BUN, (9-16) 29 mg/dL H 01/25/25 Creatinine, (0.5-1.4) 1.22 mg/dL 01/25/25 Calcium, (8.4-10.2) 9.6 mg/dL 07/25/24 Phosphorus, (2.7-4.5) 3.3 mg/dL 07/25/24 PTH Intact, (8.7-77.1) 128.3 pg/mL H 07/25/24 Urine Protein, (Neg-Trace) Negative mg/dL 07/27/24 Urine Creatinine 135.49 mg/dL 07/25/24 Protein/Creatinin Ratio, (<0.2) 0.10 07/25/24 Renal US 07/12/24 Assessment & Plan Assessment & Plan (1) Hypertension: Code(s): I10 - Essential (primary) hypertension Category: Medical Qualifiers: Hypertension type: primary hypertension Qualified Code(s): I10 - Essential (primary) hypertension (2) CKD stage 3a, GFR 45-59 ml/min: Code(s): N18.31 - Chronic kidney disease, stage 3a Category: Medical (3) Hyponatremia: Code(s): E87.1 - Hypo-osmolality and hyponatremia Category: Medical Plan Mona has had chronic kidney disease stage 3 at baseline most likely due to hypertension, vascular disease along with he related loss of renal functions. She has been on FALGUNI-inhibitor for a long time, dose of which has been adjusted at last visit with improvement in serum creatinine which is close to baseline now . (She has renovascular disease, confirmed by Doppler of her renal arteries) . She was encouraged to maintain good hydration and avoid nonsteroidal anti- inflammatories. Her blood pressure needs to maintained at goal. If her serum creatinine rises again , I shall back off on her ACEI. Further management is pending evolving data. All these have been explained in detail. Answered her and her 's questions. Follow-up appointment given Orders: Orders Electrolytes 6 Months E87.1 - Hypo-osmolality and hyponatremia, I10 - Essential (primary) hypertension, N18.31 - Chronic kidney disease, stage 3a Blood Urea Nitrogen 6 Months E87.1 - Hypo-osmolality and hyponatremia, I10 - Essential (primary) hypertension, N18.31 - Chronic kidney disease, stage 3a Creatinine 6 Months E87.1 - Hypo-osmolality and hyponatremia, I10 - Essential (primary) hypertension, N18.31 - Chronic kidney disease, stage 3a Electrolytes 01/25/25 E87.1 - Hypo-osmolality and hyponatremia, I10 - Essential (primary) hypertension, N18.31 - Chronic kidney disease, stage 3a Blood Urea Nitrogen 01/25/25 E87.1 - Hypo-osmolality and hyponatremia, I10 - Essential (primary) hypertension, N18.31 - Chronic kidney disease, stage 3a Creatinine 01/25/25 E87.1 - Hypo-osmolality and hyponatremia, I10 - Essential (primary) hypertension, N18.31 - Chronic kidney disease, stage 3a Coding Level of Care Code Est Pt Level 4 (88279) Diagnoses Primary hypertension I10 Hypertension type: primary hypertension CKD stage 3a, GFR 45-59 ml/min N18.31 Hyponatremia E87.1
[2025-01-25 14:16] VITALS: BP 104/60; PULSE 80; O2SAT 100
--- OUTSIDE RECORDS SUMMARY | 2025-01-25 16:02 | XMS_ITS | Clinical Summary ---
Author Organization [address] [facility] Address [address] [place] [address] Phone Care Team Providers Care Operations And Maintenance Technican Name Role Phone Jerald Randhawa DO Primary Care Provider [phone] Allergies No known active allergies Medications amLODIPine [...] (hypertension) 03/03/2024 Stage 3a chronic kidney disease ([facility] V24, [facility] S/[facility] V28) 03/03/2024 Varicose veins of leg with edema 03/03/2024 Surgical History Surgery Date Site/Laterality Comments HERNIA REPAIR Medical History Medical History Date Comments Hyperlipidemia Hypertension Thrombocytosis CKD (chronic kidney disease) stage 3, GFR 30-59 ml/min ([facility] V24, [facility] V28) Osteoporosis GERD (gastroesophageal reflux [...] Description 06/04/2025 12:00 PM EST Ancillary Procedure [facility] [address] [facility] [address] [place] [address] 08/03/2025 3:00 PM EDT Office Visit Vascular Surgery - [place] [address] [facility] [address] [place] [address] Susana Rossi PA [address] [facility] [address] [place] [address] Health Maintenance Due Date Last Done Comments [...] 06/06/2019, 03/24/2017 Hypertension/CHF/CAD Annual BMP Blood Test 12/15/2025 12/15/2024, 12/01/2024, 11/22/2024, Additional history exists Cholesterol Screening (Lipid Panel) [...] Procedure Name Priority Date/Time Associated Diagnosis Comments OSMOLALITY, URINE Routine 12/15/2024 11: 46 AM EDT Hyposmolality syndrome Chronic kidney disease, stage III (moderate) (CMS/HCC V24, CMS/HCC V28) BASIC METABOLIC PANEL Routine 12/15/2024 11:46 AM EDT Hyposmolality syndrome Chronic kidney disease, stage III (moderate) (CMS/HCC V24, CMS/HCC V28) SODIUM, URINE, RANDOM Routine 12/15/2024 11:46 AM EDT Hyposmolality syndrome Chronic kidney disease, stage III (moderate) (CMS/HCC V24, CMS/HCC V28) CBC WITH AUTO DIFFERENTIAL Routine 12/01/2024 11:47 [...] disease) from Last 3 Months Results * Sodium, urine, random (12/15/2024 11:46 AM EDT) Sodium, Ur 19 mmol/L LAB CHEMISTRY METHOD 12/15/2024 4:04 PM EDT [facility] Urine Urine specimen obtained by clean catch procedure / Unknown Non-blood Collection / Unknown 12/15/2024 11:46 AM EDT 12/15/2024 11:46 AM EDT us Vidal Sanford MD LAB URINE ORDERABLES Final Resul t [facility] [address] [place] [address], [place] [phone] * Osmolality, urine (12/15/2024 11:46 AM EDT) [facility] Osmolality, Urine 478 300 - 1,300 mOsm/kg LAB CHEMISTRY METHOD 12/15/2024 3:58 PM EDT [facility] Urine Urine specimen obtained by clean catch procedure / Unknown Non-blood Collection / Unknown 12/15/2024 11:46 AM EDT 12/15/2024 11:46 AM EDT Vidal Sanford MD LAB URINE ORDERABLES Final Resul t [facility] [address] [place] [address], [place] [phone] * (ABNORMAL) Basic metabolic panel (12/15/2024 11:46 AM EDT) Only the most recent of2 resultswithin the time period is included. [facility] Sodium 137 133 - 145 mmol/L LAB CHEMISTRY METHOD 12/15/2024 3:38 PM [facility] Potassium 4.6 3.5 - 5.5 mmol/L LAB CHEMISTRY METHOD 12/15/2024 3:38 PM [facility] Chloride 105 96 - 110 mmol/L LAB CHEMISTRY METHOD 12/15/2024 3:38 PM [facility] CO2 27 21 - 32 mmol/L LAB CHEMISTRY METHOD 12/15/2024 3:38 PM [facility] Anion Gap 5 3 - 11 LAB CHEMISTRY METHOD 12/15/2024 3:38 PM [facility] Glucose 151(H) 70 - 100 mg/dL LAB CHEMISTRY METHOD 12/15/2024 3:38 PM [facility] BUN 34(H) 5 - 25 mg/dL LAB CHEMISTRY METHOD 12/15/2024 3:38 PM EDT [facility] Creatinine 1.52(H) 0.50 - 1.10 mg/dL LAB CHEMISTRY METHOD 12/15/2024 3:38 PM EDT [facility] eGFR 35(L) >=60 mL/min/1. 73m2 LAB CHEMISTRY METHOD 12/15/2024 3:38 PM EDT [facility] Comment:Calculation based on the Chronic Kidney Disease Epidemiology Collaboration (CKD-EPI) equation refit without adjustment for race. BUN/Creatinine Ratio 22.4 LAB CHEMISTRY METHOD 12/15/2024 3:38 PM EDT [facility] Calcium 10.4 8.5 - 10.5 mg/dL LAB CHEMISTRY METHOD 12/15/2024 3:38 PM EDT [facility] Blood Venous blood specimen / Unknown Venipuncture / Unknown 12/15/2024 11:46 AM EDT 12/15/2024 11:46 AM EDT us Vidal Sanford MD LAB BLOOD ORDERABLES Final Resul t [facility] [address] [place] [address], * (ABNORMAL) CBC auto differential (12/01/2024 11:47 AM EDT) Only the most recent of2 resultswithin the time period is included. WBC 12.6(H) 4.8 - 10.8 K/mcL LAB HEMETOLOGY METHOD 12/01/2024 3:32 PM EDT [facility] RBC 3.60(L) 3.80 - 4.80 M/mcL LAB HEMETOLOGY METHOD 12/01/2024 3:32 PM EDT [facility] Hemoglobin 11.0(L) 11.5 - 16.0 g/dL LAB HEMETOLOGY METHOD 12/01/2024 3:32 PM EDT [facility] Hematocrit 34.3(L) 35.0 - 47.0 % LAB HEMETOLOGY METHOD 12/01/2024 3:32 PM EDT [facility] MCV 94.2 79.0 - 98.0 FL LAB HEMETOLOGY METHOD 12/01/2024 3:32 PM EDT [facility] MCH 30.2 27.0 - 32.0 pcg LAB HEMETOLOGY METHOD 12/01/2024 3:32 PM EDT [facility] MCHC 32.1 32.0 - 37.0 g/dL LAB HEMETOLOGY METHOD 12/01/2024 3:32 PM EDT [facility] RDW 14.4 11.0 - 15.0 % LAB HEMETOLOGY METHOD 12/01/2024 3:32 PM EDT [facility] Platelets 603(H) 130 - 400 K/mcL LAB HEMETOLOGY METHOD 12/01/2024 3:32 PM EDT [facility] MPV 8.7 7.0 - 11.0 FL LAB HEMETOLOGY METHOD 12/01/2024 3:32 PM EDT [facility] NRBC 0.0 <1.0 % LAB HEMETOLOGY METHOD 12/01/2024 3:32 PM EDT [facility] NRBC Absolute 0.00 <0.10 K/mcL LAB HEMETOLOGY METHOD 12/01/2024 3:32 PM EDT [facility] Neutrophils Relative 66.8 % LAB HEMETOLOGY METHOD 12/01/2024 3:32 PM EDT [facility] Lymphocytes Relative 19.6 % LAB HEMETOLOGY METHOD 12/01/2024 3:32 PM EDT [facility] Monocytes Relative 8.8 % LAB HEMETOLOGY METHOD 12/01/2024 3:32 PM EDT [facility] Eosinophils Relative 3.4 % LAB HEMETOLOGY METHOD 12/01/2024 3:32 PM EDT [facility] Basophils Relative 0.8 % LAB HEMETOLOGY METHOD 12/01/2024 3:32 PM EDT [facility] Immature Granulocytes Relative 0.6 % LAB HEMETOLOGY METHOD 12/01/2024 3:32 PM EDT [facility] Neutrophils Absolute 8.45(H) 1.50 - 7.00 K/mcL LAB HEMETOLOGY METHOD 12/01/2024 3:32 PM EDT [facility] Lymphocytes Absolute 2.47 1.00 - 5.00 K/mcL LAB HEMETOLOGY METHOD 12/01/2024 3:32 PM EDT [facility] Monocytes Absolute 1.11(H) 0.20 - 1.00 K/mcL LAB HEMETOLOGY METHOD 12/01/2024 3:32 PM EDT [facility] Eosinophils Absolute 0.43 0.00 - 0.50 K/mcL LAB HEMETOLOGY METHOD 12/01/2024 3:32 PM EDT [facility] Basophils Absolute 0.10 0.00 - 0.20 K/mcL LAB HEMETOLOGY METHOD 12/01/2024 3:32 PM EDT [facility] Immature Granulocytes Absolute 0.07(H) 0.00 - 0.03 K/mcL LAB HEMETOLOGY METHOD 12/01/2024 3:32 PM EDT [facility] Blood Venous blood specimen / Unknown Venipuncture / Unknown 12/01/2024 11:47 AM EDT 12/01/2024 11:47 AM EDT [facility] LAB BLOOD ORDERABLES Final Resul t [facility] [address] [place] [address], * Lipid panel with reflex to direct LDL (11/22/2024 1:45 PM EDT) Cholesterol 153 0 - 200 mg/dL LAB CHEMISTRY METHOD 11/22/2024 4:43 PM EDT [facility] Triglycerides 87 0 - 150 mg/dL LAB CHEMISTRY METHOD 11/22/2024 4:43 PM EDT [facility] HDL 81 >=40 mg/dL LAB CHEMISTRY METHOD 11/22/2024 4:43 PM EDT [facility] LDL Calculated 55 0 - 100 mg/dL LAB CHEMISTRY METHOD 11/22/2024 4:43 PM EDT [facility] VLDL Cholesterol Wale 17.4 mg/dL LAB CHEMISTRY METHOD 11/22/2024 4:43 PM EDT [facility] Non HDL Chol. (LDL+VLDL) 72 <145 mg/dL LAB CHEMISTRY METHOD 11/22/2024 4:43 PM EDT [facility] Chol/HDL Ratio 1.9 0.0 - 4.4 LAB CHEMISTRY METHOD 11/22/2024 4:43 PM EDT [facility] Blood Venous blood specimen / Unknown Venipuncture / Unknown 11/22/2024 1:45 PM EDT 11/22/2024 1:45 PM EDT us Garcia [facility] LAB BLOOD ORDERABLES Final Resul t [facility] [address] [place] [address], * Thyroid stimulating hormone (11/22/2024 1:45 PM EDT) [facility] TSH 0.63 0.40 - 4.00 mcIU/mL LAB CHEMISTRY METHOD 11/22/2024 5:02 PM EDT [facility] Blood Venous blood specimen / Unknown Venipuncture / Unknown 11/22/2024 1:45 PM EDT 11/22/2024 1:45 PM EDT [facility] LAB BLOOD ORDERABLES Final Resul t Performing Organization Address City/[facility]/ZIP Co de Phone Number [facility] [address] [place] [address], [place] [phone] * Hemoglobin A1c (11/22/2024 1:45 PM EDT) [facility] Hemoglobin A1C 6.0 <6.5 % LAB CHEMISTRY METHOD 11/22/2024 8:12 PM EDT [facility] Mean Bld Glu Estim. 126 mg/dL LAB CHEMISTRY METHOD 11/22/2024 8:12 PM EDT [facility] Blood Venous blood specimen / Unknown Venipuncture / Unknown 11/22/2024 1:45 PM EDT 11/22/2024 1:45 PM EDT [facility] LAB BLOOD ORDERABLES Final Resul t Performing Organization Address [facility]/ZIP Co de Phone Number [facility] [address] [place] [address], [place] [phone] * (ABNORMAL) Comprehensive metabolic panel (11/22/2024 1:45 PM EDT) [facility] Sodium 128(L) 133 - 145 mmol/L LAB CHEMISTRY METHOD 11/22/2024 4:40 PM EDT [facility] Potassium 4.9 3.5 - 5.5 mmol/L LAB CHEMISTRY METHOD 11/22/2024 4:40 PM EDT [facility] Chloride 93(L) 96 - 110 mmol/L LAB CHEMISTRY METHOD 11/22/2024 4:40 PM EDT [facility] CO2 26 21 - 32 mmol/L LAB CHEMISTRY METHOD 11/22/2024 4:40 PM EDT [facility] Anion Gap 9 3 - 11 LAB CHEMISTRY METHOD 11/22/2024 4:40 PM EDT [facility] Glucose 89 70 - 100 mg/dL LAB CHEMISTRY METHOD 11/22/2024 4:40 PM [facility] BUN 19 5 - 25 mg/dL LAB CHEMISTRY METHOD 11/22/2024 4:40 PM [facility] Creatinine 1.55(H) 0.50 - 1.10 mg/dL LAB CHEMISTRY METHOD 11/22/2024 4:40 PM [facility] eGFR 35(L) >=60 mL/min/1. 73m2 LAB CHEMISTRY METHOD 11/22/2024 4:40 PM [facility] Comment:Calculation based on the Chronic Kidney Disease Epidemiology Collaboration (CKD-EPI) equation refit without adjustment for race. BUN/Creatinine Ratio 12.3 LAB CHEMISTRY METHOD 11/22/2024 4:40 PM [facility] Calcium 10.2 8.5 - 10.5 mg/dL LAB CHEMISTRY METHOD 11/22/2024 4:40 PM [facility] AST (SGOT) 19 10 - 42 unit/L LAB CHEMISTRY METHOD 11/22/2024 4:40 PM [facility] ALT (SGPT) 27 10 - 60 unit/L LAB CHEMISTRY METHOD 11/22/2024 4:40 PM [facility] Alkaline Phosphatase 54 42 - 121 unit/L LAB CHEMISTRY METHOD 11/22/2024 4:40 PM [facility] Total Protein 7.4 6.0 - 8.0 g/dL LAB CHEMISTRY METHOD 11/22/2024 4:40 PM [facility] Albumin 4.6 3.2 - 5.0 g/dL LAB CHEMISTRY METHOD 11/22/2024 4:40 PM [facility] Total Bilirubin 0.4 0.0 - 1.4 mg/dL LAB CHEMISTRY METHOD 11/22/2024 4:40 PM [facility] Blood Venous blood specimen / Unknown Venipuncture / Unknown 11/22/2024 1:45 PM EDT 11/22/2024 1:45 PM EDT us Radha Nham LAB BLOOD ORDERABLES Final Resul t [facility] [address] [place] [address], [place] [phone] from Last 3 Months Insurance [employer] - [place] MEDICARE ADVANTAGE Care Teams Operations And Maintenance Technican Relationship Specialty Start Date End Date Jerald Randhwaa DO [address] [place] [address] [phone] PCP - General 12/08/23
== END 2025-01-25 14:37 | disposition home or self-care (01) ==
LOC: HO.HKAS 14:02
PROVIDERS: PCP Internal Medicine; Visit Provider Internal Medicine Nephrology
DX: I10 Essential (primary) hypertension (principal); N18.31 Chronic kidney disease, stage 3a; E87.1 Hypo-osmolality and hyponatremia
CPT/HCPCS: 99214

== ENCOUNTER 2025-01-25 14:01 | Outpatient (REF) | payer BC, SELFPAY ==
[2025-01-25 18:28] LABS: Anion Gap 14 (12-20); Blood Urea Nitrogen 29 mg/dL (9-16); Carbon Dioxide 26 mmol/L (22-29); Chloride 106 mmol/L (96-108); Estimated Glomerular Filt Rate 43; Potassium 4.6 mmol/L (3.3-5.1); Sodium 141 mmol/L (135-145)
== END 2025-01-25 14:02 | disposition home or self-care (01) ==
LOC: HO.HKASLDS 14:01
PROVIDERS: PCP Internal Medicine; Visit Provider Internal Medicine Nephrology
DX: I12.9 Hypertensive chronic kidney disease with stage 1 through stage 4 chronic kidney disease, or unspecified chronic kidney disease (principal); N18.31 Chronic kidney disease, stage 3a; E87.1 Hypo-osmolality and hyponatremia
CPT/HCPCS: 36415; 80051; 82565; 84520